=== PATIENT | female | born 1940 | race Caucasian/White ===

== ENCOUNTER → 2017-11-04 07:06 | Outpatient (CLI) | payer MEDICARE, SELFPAY ==
--- NOTE | 2017-11-04 07:10 | CT_ITS ---
STUDY: CT ABDOMEN AND PELVIS WITH CONTRAST REASON FOR EXAM: Female, 77 years old. Several day history of hematuria. History of breast carcinoma with bilateral mastectomies. RADIATION DOSAGE (If Supplied By Facility): CTDIvol = ( 19.55 ) mGy, DLP = ( 1083.84 ) mGycm TECHNIQUE: Transaxial images were obtained from the dome of the diaphragm to the symphysis pubis without oral contrast. 100 ml of Isovue 300 contrast was administered. Sagittal and coronal images were reconstructed. Individualized dose optimization techniques were used for this CT. COMPARISON: Comparison is made with prior study dated June 23, 2015. FINDINGS: Minimal increased linear markings at the lung bases suggests mild bibasilar scarring. This is essentially unchanged. The visualized portions of the heart are within normal limits. Normal liver. There are surgical clips in the gallbladder fossa consistent with a prior cholecystectomy. Borderline splenomegaly. Normal pancreas. Normal bilateral adrenal glands. Stable 1 cm cyst in the lateral midportion of the right kidney. 1 cm cyst in the lateral midportion of the left kidney. Punctate calcification in the lower pole calyx of the left kidney. Normal visualized stomach. Stable 3.8 cm x 4.5 cm diverticulum along the third portion of the duodenum. There are multiple colonic diverticula consistent with diverticulosis. The appendix is visualized and appears normal. There is diffuse atherosclerotic calcification of the abdominal aorta, without a demonstrated aneurysm. Normal inferior vena cava. Normal retroperitoneum. Normal urinary bladder. Normal abdominal wall. There are degenerative changes of the visualized lumbar spine. Minimal anterior listhesis of L5 on S1. CT/Abdomen/Pelvis WITH Contrast IMPRESSION: Sigmoid diverticulosis. Stable small bilateral renal cysts. Stable diverticulum of the third portion of the duodenum. Electronically Signed: Erwin Singh MD at 10:32 EST Tel [phone], Service support ,
[2017-11-04 07:26] LABS: CREATININE FINGERSTICK 1.2 mg/dL (0.55-1.02)
== END ==
PROVIDERS: Family Provider Internal Medicine; PCP Internal Medicine; Visit Provider Internal Medicine
DX: R31.9 Hematuria, unspecified (principal); Z85.3 Personal history of malignant neoplasm of breast; Z90.13 Acquired absence of bilateral breasts and nipples
CPT/HCPCS: 74177; Q9967

== ENCOUNTER → 2017-11-06 08:37 | Outpatient (CLI) | payer MEDICARE, SELFPAY | PROVIDERS: Family Provider Internal Medicine; PCP Internal Medicine; Visit Provider Internal Medicine | DX: M79.604 Pain in right leg (principal) ==

== ENCOUNTER → 2018-01-17 10:57 | Outpatient (CLI) | payer MEDICARE, SELFPAY ==
[2018-01-17 12:39] LABS: Absolute Neutrophil Count 1.3 X10^3/uL (2.0-7.7); Basophil# 0.01 X10^3/uL; Basophil% 0.4 % (0-1); Eosinophil# 0.08 X10^3/uL; Eosinophils% 3.3 % (0-5); Hematocrit 37.6 % (37-47); Hemoglobin 12.3 g/dl (12.0-15.0); Lymphocyte % 36.9 % (19-41); Mean Corp Hgb Conc 32.7 g/gl (32-36); Mean Corpuscular Volume 97.9 fL (81-99); Mean Platelet Vol. 10.3 fl (6.2-12.0); Monocyte# 0.16 X10^3/uL; Monocyte% 6.6 % (0-10); Neutrophil # 1.29 X10^3/uL (2.7-7.7); Neutrophil % 52.8 % (47-70); Platelet Count 89 K/mm3 (150-450); RBC Distribution Width CV 13.9 % (11.6-14.6); Red Blood Count 3.84 M/mm3 (4.2-5.4); White Blood Count 2.4 K/mm3 (4.4-11.0)
[2018-01-17 12:45] LABS: POSITIVE COUNT NO; POSITIVE DIFFERENTIAL NO; POSITIVE MORPHOLOGY NO
[2018-01-17 16:35] LABS: ALB/GLOB Ratio 0.6 RATIO (0.9-2.4); AST(SGOT) 23 U/L (15-37); Alanine Aminotransfer ALT/SGPT 28 U/L (13-56); Albumin, Serum 3.1 g/dL (3.2-5.0); Alkaline Phosphatase 111 U/L (45-117); Anion Gap 13 (5-15); BUN 16 mg/dL (7-18); BUN/Creat Ratio 14.8 RATIO (10-20); CRP, High Sensitivity Cardiac 0.56 mg/L; Calcium,Total 8.2 mg/dL (8.5-10.1); Chloride 105 mmol/L (98-107); Creatinine, Serum 1.08 mg/dL (0.55-1.02); EST Glomerular Filtration Rate 52 mL/min (>60); Est Glom Filt Rate - Afr Amer 63 mL/min (>60); Globulin 5.6 g/dL (2.2-4.2); Glucose 147 mg/dL (74-106); Magnesium 2.2 mg/dL (1.6-2.6); Potassium 3.4 mmol/L (3.5-5.1); Protein, Total 8.7 g/dL (6.4-8.2); Sodium Level 144 mmol/L (136-145); Thyroid Stim Hormone (TSH) 0.96 uIU/mL (0.358-3.74)
== END ==
PROVIDERS: Family Provider Internal Medicine; PCP Internal Medicine; Visit Provider Internal Medicine
DX: E87.6 Hypokalemia (principal); E83.51 Hypocalcemia; I10 Essential (primary) hypertension; R79.82 Elevated C-reactive protein (CRP); E03.9 Hypothyroidism, unspecified
CPT/HCPCS: 36415; 80053; 82330; 83735; 84443; 85025; 86141

== ENCOUNTER → 2018-06-03 17:27 | Outpatient (CLI) | payer MEDICARE, SELFPAY | PROVIDERS: Family Provider Internal Medicine; PCP Internal Medicine; Referring Provider Nurse Practitioner Adult Health; Visit Provider Nurse Practitioner Adult Health | DX: R31.0 Gross hematuria (principal) | CPT/HCPCS: 87086; 87088 ==

== ENCOUNTER → 2018-06-10 16:40 | Outpatient (CLI) | payer MEDICARE, SELFPAY | PROVIDERS: Referring Provider Nurse Practitioner Adult Health; Visit Provider Nurse Practitioner Adult Health | DX: R82.998 Other abnormal findings in urine (principal) | CPT/HCPCS: 87086; 87088 ==

== ENCOUNTER → 2018-07-21 15:25 | Outpatient (CLI) | payer MEDICARE, SELFPAY ==
[2018-05-16 14:06] VITALS: BMI 32.0
[2018-07-21 16:45] LABS: Absolute Neutrophil Count 1.6 X10^3/uL (2.0-7.7); Hematocrit 37.7 % (37-47); Hemoglobin 12.4 g/dl (12.0-15.0); Mean Corp Hgb Conc 32.9 g/gl (32-36); Mean Corpuscular Volume 100.3 fL (81-99); Mean Platelet Vol. 10.6 fl (6.2-12.0); Platelet Count 110 K/mm3 (150-450); RBC Distribution Width CV 13.8 % (11.6-14.6); RBC Distribution Width SD 49.3 fl (35.1-43.9); Red Blood Count 3.76 M/mm3 (4.2-5.4); White Blood Count 2.5 K/mm3 (4.4-11.0)
[2018-07-21 17:05] LABS: Scan Indicated on CBC? Y/N NO
== END ==
PROVIDERS: Referring Provider Internal Medicine Hematology & Oncology; Visit Provider Internal Medicine Hematology & Oncology
DX: C90.00 Multiple myeloma not having achieved remission (principal)
CPT/HCPCS: 85027

== ENCOUNTER → 2018-10-23 10:03 | Outpatient (CLI) | payer MEDICARE, SELFPAY ==
--- NOTE | 2018-10-24 10:04 | PFTCOMP_ITS ---
COMPLETE PULMONARY FUNCTION TEST INTERPRETATION Brief HPI: Patient is an 78 year old female, currently under the care of dyspnea, who presents to [facility] for complete pulmonary function tests secondary to diagnosis of Dr. Pacheco. Respiratory therapist reports good effort and reproducible results. Interpretation: Forced expiration spirometry shows no large airways obstructive ventilatory defect with an FEV1 of 97% predicted. There is no significant bronchodilator response by strict ATS criteria. Spirograms are of good quality and plateau normally. The respiratory flow volume loop shows a normal pattern. Lung volumes by body plethysmography show a normal total lung capacity at 4.42 L, 102% predicted. All other lung volumes are within normal limits. Diffusion capacity by carbon monoxide is at the lower limit of normal at 66% predicted. The airway resistance is elevated. Compared to previous pulmonary function tests from 09/26/2016, there has been a significant reduction in FVC. Impression: These pulmonary function tests are grossly within normal limits. Diffusion capacity is at the lower limit of normal, so early pulmonary vascular disease cannot be excluded.
== END ==
PROVIDERS: Family Provider Internal Medicine; PCP Internal Medicine; Referring Provider Internal Medicine; Visit Provider Internal Medicine
DX: R06.02 Shortness of breath (principal); R09.02 Hypoxemia
CPT/HCPCS: 94060; 94726; 94729

== ENCOUNTER → 2018-11-18 09:25 | Outpatient (CLI) | payer MEDICARE, SELFPAY ==
[2018-05-16 14:06] VITALS: BMI 32.0
== END ==
PROVIDERS: Family Provider Internal Medicine; PCP Internal Medicine; Referring Provider Internal Medicine Hematology & Oncology; Visit Provider Internal Medicine Hematology & Oncology
DX: C90.00 Multiple myeloma not having achieved remission (principal)
CPT/HCPCS: 86850; 86900

== ENCOUNTER → 2018-12-02 08:15 | Outpatient (CLI) | payer MEDICARE, SELFPAY ==
[2018-05-16 14:06] VITALS: BMI 32.0
[2018-12-02 10:22] LABS: Vitamin D,25 Hydroxy 71.2 ng/mL (29.95-100.01)
[2018-12-02 10:29] LABS: ALB/GLOB Ratio 0.8 RATIO (0.9-2.4); AST(SGOT) 19 U/L (15-37); Alanine Aminotransfer ALT/SGPT 27 U/L (13-56); Albumin, Serum 3.3 g/dL (3.2-5.0); Alkaline Phosphatase 110 U/L (45-117); Anion Gap 9 (5-15); BUN 19 mg/dL (7-18); BUN/Creat Ratio 17.3 RATIO (10-20); Calcium,Total 7.9 mg/dL (8.5-10.1); Chloride 107 mmol/L (98-107); Cholesterol 210 mg/dL (200); EST Glomerular Filtration Rate 51 mL/min (>60); Est Glom Filt Rate - Afr Amer 61 mL/min (>60); Globulin 4.3 g/dL (2.2-4.2); Glucose 217 mg/dL (74-106); High Density Lipoprotein 39 mg/dL; Potassium 3.6 mmol/L (3.5-5.1); Protein, Total 7.6 g/dL (6.4-8.2); Sodium Level 141 mmol/L (136-145); Triglycerides 290 mg/dL; Very Low Density Lipoprotein 58 mg/dL (5-40)
== END ==
PROVIDERS: Family Provider Internal Medicine; PCP Internal Medicine; Referring Provider Internal Medicine; Visit Provider Internal Medicine
DX: E03.9 Hypothyroidism, unspecified (principal); E78.00 Pure hypercholesterolemia, unspecified; E55.9 Vitamin D deficiency, unspecified
CPT/HCPCS: 36415; 80053; 80061; 82306; 84443

== ENCOUNTER → 2019-01-22 14:48 | Outpatient (CLI) | payer MEDICARE, SELFPAY ==
[2019-01-09 14:46] VITALS: BMI 32.0
[2019-01-22 15:58] LABS: Absolute Lymphocyte Count 0.48 X10^3/ul (0.83-4.51); Absolute Neutrophil Count 1.9 X10^3/uL (2.0-7.7); Basophil# 0.01 X10^3/uL; Basophil% 0.4 % (0-1); Eosinophil# 0.03 X10^3/uL; Eosinophils% 1.1 % (0-5); Hematocrit 43.4 % (37-47); Lymphocyte # 0.48 X10^3/ul (4.0); Mean Corp Hgb Conc 32.3 g/gl (32-36); Mean Corpuscular Hgb 34.7 pg (27.0-32.0); Mean Corpuscular Volume 107.7 fL (81-99); Mean Platelet Vol. 11.6 fl (6.2-12.0); Monocyte# 0.38 X10^3/uL; Monocyte% 13.4 % (0-10); Neutrophil # 1.93 X10^3/uL (2.7-7.7); Neutrophil % 68.1 % (47-70); Platelet Count 69 K/mm3 (150-450); RBC Distribution Width SD 59.6 fl (35.1-43.9); Red Blood Count 4.03 M/mm3 (4.2-5.4); White Blood Count 2.8 K/mm3 (4.4-11.0)
[2019-01-22 15:59] LABS: Differential Indicated SCAN CRITERIA MET; POSITIVE COUNT NO; POSITIVE DIFFERENTIAL YES; POSITIVE MORPHOLOGY YES
[2019-01-22 16:16] LABS: Hemoglobin A1c 8.5 % (4.2-6.3)
[2019-01-22 16:17] LABS: ALB/GLOB Ratio 0.9 RATIO (0.9-2.4); AST(SGOT) 12 U/L (15-37); Alanine Aminotransfer ALT/SGPT 28 U/L (13-56); Albumin, Serum 3.3 g/dL (3.2-5.0); Alkaline Phosphatase 87 U/L (45-117); Anion Gap 4 (5-15); BUN 15 mg/dL (7-18); BUN/Creat Ratio 14.3 RATIO (10-20); Calcium,Total 8.4 mg/dL (8.5-10.1); Chloride 109 mmol/L (98-107); Cholesterol 145 mg/dL (200); Creatinine, Serum 1.05 mg/dL (0.55-1.02); EST Glomerular Filtration Rate 54 mL/min (>60); Est Glom Filt Rate - Afr Amer 65 mL/min (>60); Globulin 3.6 g/dL (2.2-4.2); Glucose 202 mg/dL (74-106); High Density Lipoprotein 43 mg/dL; Potassium 4.1 mmol/L (3.5-5.1); Protein, Total 6.9 g/dL (6.4-8.2); Sodium Level 143 mmol/L (136-145); T4 Free Direct 1.21 ng/dL (0.76-1.46); Thyroid Stim Hormone (TSH) 1.03 uIU/mL (0.358-3.74); Triglycerides 165 mg/dL; Very Low Density Lipoprotein 33 mg/dL (5-40)
[2019-01-22 16:25] LABS: Vitamin D,25 Hydroxy 44.5 ng/mL (29.95-100.01)
[2019-01-22 16:41] LABS: Differential Comment SCANNED
[2019-01-22 18:28] LABS: Microalbumin,Random Urine 21.8 mg/L (NO RANGE EST.); Microalbumin:Creatinine Ratio 9.3 mg/g CRE (<30 mg/g CRE)
[2019-01-23 14:16] LABS: Pathologist Review Reviewed
== END ==
PROVIDERS: Family Provider Family Medicine; PCP Family Medicine; Referring Provider Family Medicine; Visit Provider Family Medicine
DX: I10 Essential (primary) hypertension (principal); E11.9 Type 2 diabetes mellitus without complications; E55.9 Vitamin D deficiency, unspecified; E03.9 Hypothyroidism, unspecified; E78.5 Hyperlipidemia, unspecified
CPT/HCPCS: 36415; 80053; 80061; 82043; 82306; 82570; 83036; 84439; 84443; 85025

== ENCOUNTER → 2019-01-23 12:51 | Outpatient (CLI) | payer MEDICARE, SELFPAY ==
[2019-01-09 14:46] VITALS: BMI 32.0
--- NOTE | 2019-01-23 12:54 | CDU_ITS ---
Reason For Study: Retinal vein occlusion Rt. Velocities/BP Lt. Velocities/BP Prox CCA 64.3/8.2 cm/sec. Prox CCA 87.5/14.7 cm/sec. Mid CCA 60.6/9.4 cm/sec. Mid CCA 76.9/14.7 cm/sec. Dist CCA 59.5/9.4 cm/sec. Dist CCA 57.7/8.9 cm/sec. Prox ICA 73.1/17.4 cm/sec. Prox ICA 43.1/14.2 cm/sec. Mid ICA 85.6/15.1 cm/sec. Mid ICA 63.7/16.7 cm/sec. Dist ICA 116.7/21.2 cm/sec. Dist ICA 143.8/26 cm/sec. Rt. ICA/CCA = 1.9. Lt. ICA/CCA = 1.9. Prox ECA 78.8/3.8 cm/sec. Prox ECA 87/4.6 cm/sec. Rt. Vert. 71.2/13.7 cm/sec. Lt. Vert. 32.9/7.8 cm/sec. Right Extracranial There is intimal thickening but no significant atherosclerotic plaque noted in the right common carotid artery. There is heterogeneous, irregular atherosclerotic plaque noted in the right internal carotid artery. There is intimal thickening but no significant atherosclerotic plaque noted in the right external carotid artery. Antegrade flow is noted in the right vertebral artery. Left Extracranial There is intimal thickening but no significant atherosclerotic plaque noted in the left common carotid artery. There is heterogeneous, irregular atherosclerotic plaque noted in the left internal carotid artery. There is intimal thickening but no significant atherosclerotic plaque noted in the left external carotid artery. Antegrade flow is noted in the left vertebral artery. Procedure Carotid Duplex 34035. Exam performed in department. Interpretation Summary Mild (<50%) stenosis right extracranial internal carotid. Mild (<50%) stenosis left extracranial internal carotid. Flow within the vertebral arteries is antegrade bilaterally. Ordering Physician: Stone Orantes Referring Physician: Josette Pacheco M.D. Performed By: Sommer Mesa RVT
== END ==
PROVIDERS: Family Provider Internal Medicine; PCP Internal Medicine; Referring Provider Ophthalmology; Visit Provider Ophthalmology
DX: H34.8120 Central retinal vein occlusion, left eye, with macular edema (principal)
CPT/HCPCS: 93880

== ENCOUNTER 2019-01-30 07:15 | Day surgery (SDC) | payer MEDICARE, SELFPAY ==
[2019-01-09 14:46] VITALS: BMI 32.0
--- NOTE | 2019-01-09 15:15 | HP_ITS ---
Intake Vital Signs 01/09/19 Body Mass Index (BMI) 32.0 01/09/19 Height 5 ft 2 in 01/09/19 Weight: 175 lb 2 oz 01/09/19 Body Mass Index (BMI) 32.0 01/09/19 Blood Pressure 153/92 H 01/09/19 Blood Pressure Location Rt brachial 01/09/19 Blood Pressure Position Sitting 01/09/19 Respiratory Rate 20 H 01/09/19 Pulse Rate 95 01/09/19 Pulse Ox 96 Intake Visit Reasons: Port Placement Consult Chief Complaint: port --bone marrow CA Garage [employer] Required: No Is patient in pain?: No Allergies lisinopril Allergy (Verified 01/09/19 14:46) Unknown Medications Aspirin [Aspirin, Baby] 81 mg PO DAILY@0800 10/07/13 [History Confirmed 05/16/18] Cetirizine HCl [Zyrtec] 10 mg PO DAILY 10/07/13 [History Confirmed 05/16/18] Levothyroxine [Synthroid] 100 mcg PO DAILY 10/07/13 [History Confirmed 05/16/18] Multivitamins,Therapeutic [Multivitamin] 1 tab PO DAILY 10/07/13 [History Confirmed 05/16/18] Sertraline HCl [Zoloft] 150 mg PO DAILY 10/07/13 [History Confirmed 05/16/18] Insulin Detemir [Levemir FlexPen] 50 units SC QHS 11/24/16 [History Confirmed 05/16/18] Simvastatin [Zocor] 40 mg PO QHS 11/24/16 [History Confirmed 05/16/18] Valsartan [Diovan] 160 mg PO DAILY 11/24/16 [History Confirmed 05/16/18] Calcium Carbonate/Vitamin D3 [Calcium 500+D Tablet Chew] 1 tab PO DAILY 12/25/16 [History Confirmed 05/16/18] Insulin Lispro [Humalog] 0 unit SQ UD 12/25/16 [History Confirmed 05/16/18] Ketotifen Fumarate [Alaway] 10 ml OP DAILY PRN PRN 12/25/16 [History Confirmed 05/16/18] Is last menstrual period known: No Post menopausal: Yes Patient : No PFSH Medical History Leukopenia (Acute) Hypophosphatemia (Acute) Gastroenteritis (Acute) Acute renal failure (Acute) Metabolic acidosis (Acute) Hypokalemia (Acute) Hypertension (Chronic) Diabetes mellitus type 2 in obese (Chronic) Breast cancer (Chronic) Gastroesophageal reflux disease (Chronic) Hypothyroidism (acquired) (Chronic) Hyperlipidemia (Chronic) Osteoporosis (Chronic) Dehydration (Acute) Obstructive sleep apnea (Chronic) Depression (Chronic) Cataracts, bilateral (Chronic) Chronic idiopathic thrombocytopenia (Chronic) Diastolic dysfunction (Chronic) Surgical History Hx of tonsillectomy (Acute) Hx of cholecystectomy (Acute) History of thyroidectomy (Chronic) Family History Mother CVA (cerebral vascular accident) Social History Smoking Status: Never smoker second hand exposure: No alcohol intake: never substance use type: does not use caffeine: Yes what type of physical activity do you participate in: none frequency: does not exercise seatbelt use: always HPI HPI HPI: MAGDI IBRAHIM, is a 78 F who presents to the office today for HPI HPI Surgical H&P: Yes HPI: MAGDI IBRAHIM, is a 78 F who presents to the office today for surgical consultation regarding placement of a port to facilitate IV chemotherapy management. The patient is referred by Dr. Daniel Toussaint and a written copy of my surgical consult recommendations will be returned to him. Magdi is a patient who I know very well. I have assisted her over many years. She has had a history of left breast cancer and left upper extremity melanoma and diabetes mellitus and sleep apnea and hypertension and asthma and osteoporosis as well as a meningioma thrombocytopenia hypercholesterolemia GERD and newly diagnosed positive bone lytic lesions for multiple myeloma. She has been receiving IV chemotherapy through peripheral veins which are becoming exhausted. Risk request is made to help facilitate IV management. ROS General General: Yes weight change, fatigue and breast cancer; no appetite, colon cancer or weakness Additional Details: Bone marrow CA HEENT HEENT: Yes eye surgery; no difficulty swallowing, eye injury, swollen glands or hoarseness Endo Endocrine: Yes thyroid disease and diabetes mellitus; no thyroid cancer, Hair loss, heat intolerance or cold intolerance Cardio Cardiovascular: Yes high blood pressure; no murmur, pacemaker, heart disease, atrial fibrillation, heart attack, heart stent, palpitations, shortness of breat with exertion or chest pain Psych Psychiatric: Yes depression; no anxiety or hearing voices Resp Respiratory: No shortness of breath, Yes sleep apnea, No cough, No COPD, No asthma, No emphysema, No wheezing Gastro Gastrointestinal: No abdominal pain, No nausea or vomiting, No diarrhea, No constipation, No blood in stool, Yes acid reflux, No hemorrhoids, No ulcers, No gallbladder problem, No black,tarry stools Neuro Neurologic: No weakness Exam Const General: cooperative Nutritional Appearance: overweight Orientation: alert, awake [facility] Head: normal to inspection Neck Other: Carotids 2+. No bruits. Neck is supple Resp Effort & Inspection: normal respiratory effort Auscultation: clear to auscultation bilaterally Cardio Rate: regular rate Rhythm: regular rhythm Heart Sounds: no murmurs GI Palpation: soft, no hepatosplenomegaly Auscultation: normal bowel sounds Neuro Cognition: normal cognition Extrem General: no calf tenderness bilaterally Psych Affect: normal affect Assessment & Plan Problems 1. Multiple myeloma, remission status unspecified C90.00 Plan The patient has had left breast cancer left upper extremity melanoma she has had 2 attempts at left axillary dissection. I would propose therefore right internal jugular port placement. I discussed with her technique, benefit, risks and alternatives. The patient states that she has had some retinal hemorrhage on the left and that a carotid duplex scan is pending. She would like to delay attention until the results of that exam. We offered her a operative date 4 days from now for placement of the port but she has declined that date. She states she would feel more comfortable scheduling a future date. She admittedly is frustrated that she is not permitted to drive herself in and out for the surgical procedure. She does not like composing upon her children. She has had an opportunity to ask and have questions answered. We will schedule and proceed at her discretion. I very much appreciate the ongoing opportunity of assisting with her surgical care. CC: Dr. Daniel Toussaint and Dr. Josette Concepcion M.D., F.A.C.S. Coding Level of Care Code Detailed, Low Diagnoses Multiple myeloma, remission status unspecified C90.00 ??Multiple myeloma remission status: unspecified 01/09/19 4075 <Electronically signed by Daniele Concepcion MD> Date Daniele Concepcion MD Patient re evaluated and no gross changes identified. Lucinda
[2019-01-30] VITALS (9 sets, daily range): BP systolic 101–138; BP diastolic 63–86; PULSE 83–96; RESP 16–20; TEMP 36–36.9; O2SAT 91–95; BMI 32.8
--- NOTE | 2019-01-30 08:37 | DCINST_ITS ---
Discharge Diet: No Restrictions - Pain medication may cause nausea. You should typically eat light foods as you take your pain medication. Discharge Activity: Return to Normal Activity, May Shower - Leave the bandage on for 2-3 days. When you remove the bandage, leave the steri-strips intact until they fall off. Additional Dressing/Incision Instructions:: Leave the bandage on for 2-3 days. When you remove the bandage, leave the steri-strips intact until they fall off. Allergies/Adverse Reactions: Allergies lisinopril Allergy (Verified 01/23/19 11:20) Unknown Medications to take at Discharge Aspirin [Aspirin, Baby] 81 mg PO DAILY@0800 10/07/13 Cetirizine HCl [Zyrtec] 10 mg PO DAILY 10/07/13 Levothyroxine [Synthroid] 100 mcg PO DAILY 10/07/13 Multivitamins,Therapeutic [Multivitamin] 1 tab PO DAILY 10/07/13 Sertraline HCl [Zoloft] 50 mg PO DAILY 10/07/13 Insulin Detemir [Levemir FlexPen] 50 units SC QHS 11/24/16 Simvastatin [Zocor] 20 mg PO QHS 11/24/16 Valsartan [Diovan] 80 mg PO DAILY 11/24/16 Calcium Carbonate/Vitamin D3 [Calcium 500+D Tablet Chew] 1 tab PO DAILY 12/25/16 Insulin Lispro [Humalog] 12 unit SQ TID 12/25/16 Acyclovir 200 mg PO BID 01/23/19 Mineral Oil, Light/Mineral Oil [Soothe Xp Eye Drops] 1 drop OP PRN PRN 01/23/19 Primary Care Physician: Josette Pacheco MD [Primary Care Provider] - Test Results: Test results from this visit will be discussed in further detail at your follow- up appointment, if applicable. Please Follow Up With: Daniele Concepcion MD - [phone] When: Please call if you have any difficulties
[2019-01-30] MEDS: Cefazolin 2 GM in 0.9% Normal Saline 100 ML IV (08:38)
[2019-01-30] MEDS: Bupivacaine Mpf 0.5% 30 ML VIAL (09:14)
--- NOTE | 2019-01-30 09:18 | RAD_ITS ---
STUDY: X-RAY CHEST REASON FOR EXAM: Female, 78 years old. Port placement. TECHNIQUE: Single AP portable view of the chest. COMPARISON: Comparison is made with prior examination dated March 17, 2015. FINDINGS: A right-sided neela catheter has been placed. The tip is at the junction of superior vena cava and right atrium. EKG electrodes are seen. Surgical clips are one seen in the left axillary region and overlying the left hemithorax. Since prior study, there has been progressive infiltrate and/or atelectasis of the left lung base. There is no demonstrated pleural abnormality. Normal size heart. Normal mediastinum and gutierrez. Normal visualized pulmonary arteries. Normal visualized aortic arch and descending thoracic aorta. Normal visualized thoracic spine. There is degenerative osteoarthritis of the bilateral shoulders. Deformity of the proximal right humerus most likely secondary to prior healed fracture. There is no demonstrated abnormality of the visualized soft tissue structures of the upper abdomen. RAD/CXR for Line Placement IMPRESSION: The tip of the right port catheter is at the junction of the superior vena cava and right atrium. Progressive infiltrate and/or atelectasis at the left lung base. Electronically Signed: Erwin Singh, at 10:02 EDT , Service support ,
--- NOTE | 2019-01-30 09:23 | OP.PCM_ITS ---
Problem List (1) Multiple myeloma Status: Acute Qualifiers: Report of Operation Date of Procedure: 01/30/19 Pre-Operative Diagnosis: Multiple myeloma Post-Operative Diagnosis: Same Surgery/Procedure Performed:: Right internal jugular 6 Amharic power port placement reference. #[id number]. Lot number [id number] expiry date 06/01/2020 Description of Surgical Findings:: Timeout and informed consent was obtained. 78-year-old female was taken the operating placement table underwent monitored anesthesia care. Ancef 2 g were given intravenously preoperatively. The right neck and chest were sterilely prepped draped. Under ultrasound guidance 1% lidocaine mixed 50-50 with 0.5% Marcaine was used as a local anesthetic. A total of 25 cc was used. Local was instilled micropuncture needle was inserted in the right internal jugular vein Salinger wire technique. Local was instilled down upon the chest wall. Mid clavicular line second intercostal space transverse incision was created. A subcutaneous pocket was created with electrocautery. The tubing was tunneled from the neck to the chest site. Micropuncture sheath was placed an 035 J-wire was inserted. Fluoroscopy demonstrated good positioning. Sheath dilator was placed over the wire. The wire and dilator were removed. The catheter was advanced through the sheath. The sheath was split leaving the catheter at the SVC atrial junction with fluoroscopic assistance. The catheter was amputated to length connected the port and secured with a port attachment device. The port was placed in the pocket and secured there with interrupted 2-0 silk. Skin edges were approximated interrupted 3-0 Vicryl subdermal stitches. The neck was closed with interrupted 5-0 Vicryl. Steri-Strips Telfa and OpSite dressings applied. The port was accessed and aspirated easily was flushed with saline and then 2 cc of heparinized saline. Sponge and instrument and needle counts were reported to the surgeon to be correct. Blood loss was minimal. She tolerated the procedure well and was taken to the recovery area in satisfactory condition without apparent complication. Stat portable chest x-ray is pending. Specimen none. Drains none. Blood loss minimal. Daniele Concepcion M.D., F.A.C.S. Type of Anesthesia:: Local MAC Anesthesiologist: Alirio Siegel
[2019-01-30 09:36] LABS: Bedside Glucose 187 mg/dL (70-110)
== END 2019-01-30 11:21 | disposition home or self-care (01) ==
LOC: SDC 07:20 → AC 07:20
PROVIDERS: Family Provider Internal Medicine; PCP Internal Medicine; Referring Provider Surgery; Visit Provider Surgery
PROC: (CPT 36561; principal; 2019-01-30 08:30)
DX: C90.00 Multiple myeloma not having achieved remission (principal); E11.9 Type 2 diabetes mellitus without complications; I10 Essential (primary) hypertension; E03.9 Hypothyroidism, unspecified; E78.5 Hyperlipidemia, unspecified; M81.0 Age-related osteoporosis without current pathological fracture; D69.3 Immune thrombocytopenic purpura; E07.9 Disorder of thyroid, unspecified; E78.00 Pure hypercholesterolemia, unspecified; D69.6 Thrombocytopenia, unspecified; G47.33 Obstructive sleep apnea (adult) (pediatric); J45.909 Unspecified asthma, uncomplicated; K21.9 Gastro-esophageal reflux disease without esophagitis; F32.9 Major depressive disorder, single episode, unspecified; F41.9 Anxiety disorder, unspecified; E66.9 Obesity, unspecified; Z68.32 Body mass index [BMI] 32.0-32.9, adult; Z79.82 Long term (current) use of aspirin; Z79.4 Long term (current) use of insulin; Z79.899 Other long term (current) drug therapy; Z88.8 Allergy status to other drugs, medicaments and biological substances; Z78.0 Asymptomatic menopausal state; Z85.3 Personal history of malignant neoplasm of breast; Z85.820 Personal history of malignant melanoma of skin
CPT/HCPCS: 36561; 76937; 71045; 77001; 82962; J7120

== ENCOUNTER → 2019-02-17 | Outpatient (CLI) | payer MEDICARE, SELFPAY ==
[2019-01-30 07:37] VITALS: BMI 32.8
[2019-02-17 15:37] LABS: Vitamin B12 692 pg/mL (211-911); Vitamin D,25 Hydroxy 43.8 ng/mL (29.95-100.01)
[2019-02-17 15:40] LABS: Protein, Urine (Random) 13.5 mg/dL (<11.9); Protein:Creat Ratio 41 mg/g CRE (0-200)
[2019-02-17 16:02] LABS: Anion Gap 11 (5-15); BUN 22 mg/dL (7-18); BUN/Creat Ratio 19.5 RATIO (10-20); Calcium,Total 8.5 mg/dL (8.5-10.1); Chloride 108 mmol/L (98-107); Creatinine, Serum 1.13 mg/dL (0.55-1.02); EST Glomerular Filtration Rate 49 mL/min (>60); Est Glom Filt Rate - Afr Amer 60 mL/min (>60); Glucose 162 mg/dL (74-106); Potassium 3.6 mmol/L (3.5-5.1); Sodium Level 144 mmol/L (136-145)
== END | disposition home or self-care (01) ==
LOC: MFPLAB 12:05
PROVIDERS: Family Provider Family Medicine; PCP Family Medicine; Referring Provider Family Medicine; Visit Provider Family Medicine
DX: D75.89 Other specified diseases of blood and blood-forming organs (principal); R94.4 Abnormal results of kidney function studies
CPT/HCPCS: 36415; 80048; 82306; 82570; 82607; 82746; 84156

== ENCOUNTER → 2019-05-19 14:58 | Outpatient (CLI) | payer MEDICARE, SELFPAY ==
[2019-01-30 07:37] VITALS: BMI 32.8
[2019-05-19 16:10] LABS: Hemoglobin A1c 8.4 % (4.2-6.3)
[2019-05-19 16:12] LABS: Absolute Lymphocyte Count 0.94 X10^3/uL (0.83-4.51); Absolute Neutrophil Count 4.1 X10^3/uL (2.0-7.7); Basophil# 0.03 X10^3/uL; Basophil% 0.5 % (0-1); Eosinophil# 0.11 X10^3/uL; Eosinophils% 1.9 % (0-5); Hematocrit 44.8 % (37-47); Hemoglobin 14.9 g/dL (12.0-15.0); Lymphocyte # 0.94 X10^3/ul (4.0); Lymphocyte % 16.4 % (19-41); Mean Corp Hgb Conc 33.3 g/dL (32-36); Mean Corpuscular Hgb 32.3 pg (27.0-32.0); Mean Corpuscular Volume 97.2 fL (81-99); Mean Platelet Vol. 10.5 fl (6.2-12.0); Monocyte# 0.59 X10^3/uL; Monocyte% 10.3 % (0-10); NRBC Flagged by Analyzer 0 % (0-5); Neutrophil # 4.05 X10^3/uL (2.7-7.7); Neutrophil % 70.7 % (47-70); Platelet Count 110 K/mm3 (150-450); Red Blood Count 4.61 M/mm3 (4.2-5.4); White Blood Count 5.7 K/mm3 (4.4-11.0)
[2019-05-19 16:22] LABS: ALB/GLOB Ratio 0.7 RATIO (0.9-2.4); AST(SGOT) 16 U/L (15-37); Alanine Aminotransfer ALT/SGPT 20 U/L (13-56); Albumin, Serum 3.3 g/dL (3.2-5.0); Alkaline Phosphatase 64 U/L (45-117); Anion Gap 7 (5-15); BUN 17 mg/dL (7-18); BUN/Creat Ratio 15.7 RATIO (10-20); Calcium,Total 8.8 mg/dL (8.5-10.1); Chloride 108 mmol/L (98-107); Cholesterol 135 mg/dL (200); Creatinine, Serum 1.08 mg/dL (0.55-1.02); EST Glomerular Filtration Rate 52 mL/min (>60); Est Glom Filt Rate - Afr Amer 63 mL/min (>60); Globulin 4.5 g/dL (2.2-4.2); Glucose 79 mg/dL (74-106); High Density Lipoprotein 44 mg/dL; Potassium 3.7 mmol/L (3.5-5.1); Protein, Total 7.8 g/dL (6.4-8.2); Sodium Level 144 mmol/L (136-145); Thyroid Stim Hormone (TSH) 0.39 uIU/mL (0.358-3.74); Triglycerides 153 mg/dL; Very Low Density Lipoprotein 31 mg/dL (5-40)
[2019-05-19 17:03] LABS: Vitamin D,25 Hydroxy 47.6 ng/mL (29.95-100.01)
== END ==
LOC: LAB.FUTURE 15:12 → MEDOUTP 15:14
PROVIDERS: Family Provider Family Medicine; PCP Family Medicine; Referring Provider Family Medicine; Visit Provider Family Medicine
DX: E11.9 Type 2 diabetes mellitus without complications (principal); I10 Essential (primary) hypertension; E03.9 Hypothyroidism, unspecified; E78.5 Hyperlipidemia, unspecified; E55.9 Vitamin D deficiency, unspecified; R94.4 Abnormal results of kidney function studies
CPT/HCPCS: 36591; 80053; 80061; 82306; 83036; 84443; 85025; A4216

== ENCOUNTER → 2019-09-14 13:14 | Outpatient (CLI) | payer MEDICARE, SELFPAY ==
[2019-09-03 13:20] VITALS: BMI 32.8
[2019-09-14 14:02] LABS: Bacteria 0 SEEN /hpf (None Seen); Red Blood Cells-Urine 0 SEEN /hpf (0-5); Squamous Epithelial Cells - UA 0 SEEN /hpf (5-10)
[2019-09-14 14:10] LABS: Absolute Lymphocyte Count 0.74 X10^3/uL (0.83-4.51); Absolute Neutrophil Count 1.7 X10^3/uL (2.0-7.7); Basophil# 0.02 X10^3/uL; Basophil% 0.7 % (0-1); Eosinophil# 0.05 X10^3/uL; Eosinophils% 1.7 % (0-5); Hematocrit 40.2 % (37-47); Lymphocyte # 0.74 X10^3/ul (4.0); Lymphocyte % 24.8 % (19-41); Mean Corp Hgb Conc 34.8 g/dL (32-36); Mean Corpuscular Hgb 33.3 pg (27.0-32.0); Mean Corpuscular Volume 95.7 fL (81-99); Mean Platelet Vol. 11.7 fl (6.2-12.0); Monocyte# 0.42 X10^3/uL; Monocyte% 14.1 % (0-10); NRBC Flagged by Analyzer 0 % (0-5); Neutrophil # 1.74 X10^3/uL (2.7-7.7); Neutrophil % 58.4 % (47-70); POSITIVE COUNT YES; Platelet Count 79 K/mm3 (150-450); RBC Distribution Width CV 12.2 % (11.6-14.6); RBC Distribution Width SD 42.1 fl (35.1-43.9)
[2019-09-14 14:11] LABS: Differential Indicated SCAN CRITERIA MET
[2019-09-14 14:15] LABS: Color, Urine Yellow (Yellow); Glucose, Dipstick Normal (Normal); Ketone-Dipstick 5 mg/dl (Negative); Leukocyte Esterase-Dipstick 100 /ul (Negative); Nitrite-Dipstick Negative (Negative); Occult Blood-Urine Negative /ul (Negative); Protein-Dipstick 15 mg/dl (Negative); Specific Gravity, Urine 1.025 (1.002-1.030); Urine Clarity Sl. Cloudy (Clear); Urine Urobilinogen 4 mg/dl (Normal)
[2019-09-14 14:27] LABS: Vitamin B12 590 pg/mL (211-911)
[2019-09-14 14:31] LABS: Urine Bilirubin Dipstick 1 mg/dL (Negative)
[2019-09-14 14:38] LABS: Platelet Estimate MOD DEC (ADEQ)
[2019-09-14 14:38] LABS: Mucous, Urine RARE /hpf (<or=2+); White Blood Cells 0-5 SEEN /hpf (0-5)
[2019-09-14 14:47] LABS: Microalbumin:Creatinine Ratio 14.3 mg/g CRE (<30 mg/g CRE); Protein, Urine (Random) 29.4 mg/dL (<11.9); Protein:Creat Ratio 68 mg/g CRE (0-200)
[2019-09-14 15:01] LABS: Hemoglobin A1c 8.8 % (4.2-6.3)
[2019-09-14 15:38] LABS: ALB/GLOB Ratio 0.7 RATIO (0.9-2.4); AST(SGOT) 20 U/L (15-37); Alanine Aminotransfer ALT/SGPT 23 U/L (13-56); Albumin, Serum 3.1 g/dL (3.2-5.0); Alkaline Phosphatase 65 U/L (45-117); Anion Gap 6 (5-15); BUN 16 mg/dL (7-18); BUN/Creat Ratio 14.7 RATIO (10-20); Calcium,Total 8.2 mg/dL (8.5-10.1); Chloride 110 mmol/L (98-107); Cholesterol 163 mg/dL (200); Creatinine, Serum 1.09 mg/dL (0.55-1.02); EST Glomerular Filtration Rate 51 mL/min (>60); Est Glom Filt Rate - Afr Amer 62 mL/min (>60); Globulin 4.2 g/dL (2.2-4.2); Glucose 130 mg/dL (74-106); High Density Lipoprotein 27 mg/dL; Potassium 3.7 mmol/L (3.5-5.1); Protein, Total 7.3 g/dL (6.4-8.2); Sodium Level 143 mmol/L (136-145); T4 Free Direct 1.23 ng/dL (0.76-1.46); Thyroid Stim Hormone (TSH) 0.21 uIU/mL (0.358-3.74); Triglycerides 251 mg/dL; Very Low Density Lipoprotein 50 mg/dL (5-40)
== END ==
PROVIDERS: Family Provider Family Medicine; PCP Family Medicine; Referring Provider Family Medicine; Visit Provider Family Medicine
DX: E78.5 Hyperlipidemia, unspecified (principal); E03.9 Hypothyroidism, unspecified; E55.9 Vitamin D deficiency, unspecified; I12.9 Hypertensive chronic kidney disease with stage 1 through stage 4 chronic kidney disease, or unspecified chronic kidney disease; E11.22 Type 2 diabetes mellitus with diabetic chronic kidney disease; N18.3 Chronic kidney disease, stage 3 (moderate); D75.89 Other specified diseases of blood and blood-forming organs
CPT/HCPCS: 36591; 80053; 80061; 81001; 82043; 82306; 82570; 82607; 82746; 83036; 84156; 84439; 84443; 85025; A4216

== ENCOUNTER → 2019-09-16 14:41 | Outpatient (CLI) | payer MEDICARE, SELFPAY ==
--- NOTE | 2019-09-16 13:00 | LES_PTH ---
PATIENT: MAGDI IBRAHIM LOC: [facility] U#:[id number] AGE/SX: 85/F ROOM: RE09/16/[address]: Dr. Daniele Concepcion MD : 1940 BED: DIS: SPEC #: [id number] RECD: 09/16/19 14:29 STATUS: ROSAS GILA #: [id number] STEPHANIE: 09/16/19 13:[address]: Daniele Concepcion DEPT: SURGICAL PATHOLOGY RECD BY: Eric Pedersen ENTERED: 09/17/19 10:29 SP TYPE: Lesion OTHR DR: Dr. Ed Abbott MD Tissues: Skin of face, NOS Procedures: Surgery Specimen Level IV HEADER OPERATION: Excision left cheek lesion PRE-OP DIAGNOSIS: Uncertain neoplasm face TISSUE SUBMITTED: Left cheek tissue MICROSCOPIC DIAGNOSIS Left cheek tissue, biopsy: Actinic change. Focal seborrheic keratosis. Extensive solar elastosis. No evidence of carcinoma. AM:paris 09/18/19 COMMENT Case has been reviewed in consultation with Dr. Rincon who concurs with the above diagnosis. IDC:SJ MICROSCOPIC DESCRIPTION Slides are reviewed. GROSS DESCRIPTION Received in fixative is one container labeled with the patient's name and designated left cheek. The specimen consists of a piece of leija-white skin ellipse measuring 1.7 x 1 cm and 0.2 cm in thickness. A suture is noted at one tip of the specimen. One half of the specimen towards the suture is inked black and another half is inked blue. The specimen is inked, serially sectioned and submitted entirely in one cassette. / ADELAIDE:paris 09/17/19 TC:5 CPT: 98743
[2019-09-16 13:29] VITALS: BMI 32.8
== END ==
PROVIDERS: Family Provider Family Medicine; PCP Family Medicine; Referring Provider Surgery; Visit Provider Surgery
DX: D48.7 Neoplasm of uncertain behavior of other specified sites (principal)
CPT/HCPCS: 88305

== ENCOUNTER → 2019-09-30 | Outpatient (CLI) | payer MEDICARE, SELFPAY ==
--- NOTE | 2019-09-30 13:00 | LES_PTH ---
PATIENT: MAGDI IBRAHIM LOC: [facility] U#:[id number] AGE/SX: 79/F ROOM: RE09/30/[address]: Dr. Daniele Concepcion MD : 1940 BED: DIS: 09/30/2019 SPEC #: [id number] RECD: 10/01/19 07:20 STATUS: ROSAS GILA #: [id number] STEPHANIE: 09/30/19 13:[address]: Daniele Concepcion DEPT: SURGICAL PATHOLOGY RECD BY: Eric Pedersen Tissues: Skin of forehead Procedures: Surgery Specimen Level IV HEADER OPERATION: Excision of forehead skin lesion PRE-OP DIAGNOSIS: Skin lesion of face L98.9 TISSUE SUBMITTED: Forehead tissue MICROSCOPIC DIAGNOSIS Skin lesion of forehead, biopsy: Basal cell carcinoma, superficial nodule, multifocal, completely excised. Solar elastosis. See comment. AM:paris 10/02/19 COMMENT The lesion measures 3 cm in greatest dimension and appears to have been completely excised in the planes examined. MICROSCOPIC DESCRIPTION Slides are reviewed. GROSS DESCRIPTION Received in fixative is one container labeled with the patient's name and designated forehead tissue. The specimen consists of a leija-white skin ellipse measuring 1.5 x 0.5 x 0.3 cm. The specimen is inked, serially sectioned and submitted entirely in one cassette. / SJ:rg 10/01/19 TC:0 CPT: 84063
[2019-09-30 13:06] VITALS: BMI 32.8
== END | disposition home or self-care (01) ==
LOC: LABSPEC 10-01 08:22
PROVIDERS: Visit Provider Surgery
DX: C44.319 Basal cell carcinoma of skin of other parts of face (principal)
CPT/HCPCS: 88305

== ENCOUNTER → 2019-09-30 | Outpatient (CLI) | payer MEDICARE, SELFPAY ==
[2019-09-30 13:06] VITALS: BMI 32.8
== END | disposition home or self-care (01) ==
LOC: LABSPEC 10-01 09:27
PROVIDERS: Referring Provider Surgery; Visit Provider Surgery
DX: L98.9 Disorder of the skin and subcutaneous tissue, unspecified (principal)

== ENCOUNTER → 2019-12-16 09:46 | Outpatient (CLI) | payer MEDICARE, SELFPAY ==
[2019-09-30 13:06] VITALS: BMI 32.8
[2019-12-16 10:13] LABS: Absolute Lymphocyte Count 1.34 X10^3/uL (0.83-4.51); Basophil# 0.05 X10^3/uL; Eosinophil# 0.16 X10^3/uL; Eosinophils% 3.1 % (0-5); Hematocrit 44.9 % (37-47); Hemoglobin 15.1 g/dL (12.0-15.0); Lymphocyte # 1.34 X10^3/ul (4.0); Lymphocyte % 26.4 % (19-41); Mean Corp Hgb Conc 33.6 g/dL (32-36); Mean Corpuscular Volume 95.1 fL (81-99); Mean Platelet Vol. 10.2 fl (6.2-12.0); Monocyte# 0.52 X10^3/uL; Monocyte% 10.2 % (0-10); NRBC Flagged by Analyzer 0 % (0-5); Neutrophil # 2.99 X10^3/uL (2.7-7.7); Neutrophil % 58.9 % (47-70); POSITIVE COUNT YES; Platelet Count 96 K/mm3 (150-450); RBC Distribution Width CV 12.3 % (11.6-14.6); RBC Distribution Width SD 42.8 fl (35.1-43.9); Red Blood Count 4.72 M/mm3 (4.2-5.4); White Blood Count 5.1 K/mm3 (4.4-11.0)
[2019-12-16 10:14] LABS: Differential Indicated SCAN CRITERIA MET
[2019-12-16 10:27] LABS: PTHIN 121.1 pg/mL (18.4-80.1)
[2019-12-16 10:29] LABS: Hemoglobin A1c 7.9 % (4.2-6.3)
[2019-12-16 10:30] LABS: Vitamin D,25 Hydroxy 45.1 ng/mL
[2019-12-16 10:34] LABS: AST(SGOT) 16 U/L (15-37); Alanine Aminotransfer ALT/SGPT 21 U/L (13-56); Albumin, Serum 3.4 g/dL (3.2-5.0); Alkaline Phosphatase 71 U/L (45-117); Anion Gap 6 (5-15); BUN 24 mg/dL (7-18); BUN/Creat Ratio 20.3 RATIO (10-20); Calcium,Total 8.1 mg/dL (8.5-10.1); Chloride 108 mmol/L (98-107); Cholesterol 199 mg/dL (200); Creatinine, Serum 1.18 mg/dL (0.55-1.02); EST Glomerular Filtration Rate 47 mL/min (>60); Est Glom Filt Rate - Afr Amer 56 mL/min (>60); Globulin 3.4 g/dL (2.2-4.2); Glucose 122 mg/dL (74-106); High Density Lipoprotein 45 mg/dL; Phosphorus 4.4 mg/dL (2.5-4.9); Potassium 3.5 mmol/L (3.5-5.1); Protein, Total 6.8 g/dL (6.4-8.2); Sodium Level 143 mmol/L (136-145); T4 Free Direct 1.28 ng/dL (0.76-1.46); Thyroid Stim Hormone (TSH) 0.99 uIU/mL (0.358-3.74); Triglycerides 172 mg/dL; Very Low Density Lipoprotein 34 mg/dL (5-40)
[2019-12-16 10:43] LABS: Platelet Estimate MOD DEC (ADEQ)
== END ==
PROVIDERS: Referring Provider Family Medicine; Visit Provider Family Medicine
DX: I12.9 Hypertensive chronic kidney disease with stage 1 through stage 4 chronic kidney disease, or unspecified chronic kidney disease (principal); N18.3 Chronic kidney disease, stage 3 (moderate); E11.22 Type 2 diabetes mellitus with diabetic chronic kidney disease; E78.5 Hyperlipidemia, unspecified; E03.9 Hypothyroidism, unspecified; E55.9 Vitamin D deficiency, unspecified
CPT/HCPCS: 36415; 36591; 80053; 80061; 82306; 83036; 83970; 84100; 84439; 84443; 85025; A4216

== ENCOUNTER → 2020-03-01 09:30 | Outpatient (CLI) | payer MEDICARE, SELFPAY ==
[2019-09-30 13:06] VITALS: BMI 32.8
--- NOTE | 2020-03-01 09:33 | RAD_ITS ---
STUDY: X-RAY - BILATERAL RIBS WITH CHEST REASON FOR EXAM: Female, 79 years old. recent fall, left anterior rib pain TECHNIQUE - RIBS: 4 view(s) of the ribs. TECHNIQUE - CHEST: Single PA view of the chest. COMPARISON: 09/17/2017 FINDINGS - RIBS : Normal visualized ribs without a demonstrated fracture. FINDINGS - CHEST: Interval placement of right internal jugular chest port with tip of the catheter overlying spur vena cava. Multiple surgical clips in the lateral left hemithorax. The lungs are clear and expanded. There is no demonstrated pleural abnormality. Normal size heart. Normal mediastinum and gutierrez. Normal visualized pulmonary arteries. Normal visualized aortic arch and descending thoracic aorta. Normal visualized thoracic spine. Healed fracture left clavicle. There is no demonstrated abnormality of the visualized soft tissue structures of the upper abdomen. RAD/Ribs Blayne Min 4V w/PA Chest IMPRESSION: RIBS: Normal x-ray examination of the bilateral ribs. CHEST: No active pulmonary disease. Electronically Signed: Gianni Ferrari MD at 9:56 EDT Tel , Service support ,
== END ==
PROVIDERS: Referring Provider Family Medicine; Visit Provider Family Medicine
DX: R07.81 Pleurodynia (principal)
CPT/HCPCS: 71111

== ENCOUNTER → 2020-03-15 17:10 | Outpatient (CLI) | payer MEDICARE, SELFPAY ==
[2019-09-30 13:06] VITALS: BMI 32.8
--- NOTE | 2020-03-15 17:13 | RAD_ITS ---
STUDY: X-RAY CHEST REASON FOR EXAM: Female, 79 years old. patient had a fall a couple weeks ago, has continued left sided rib/chest pain from it TECHNIQUE: PA and lateral views of the chest. COMPARISON: March 01, 2020. FINDINGS: Port on the right extends to the superior vena cava. There is postoperative change in the left chest and axillary region. There are moderate interstitial increased opacities of the lungs. There is no demonstrated pleural abnormality. Normal size heart. Normal mediastinum and gutierrez. Normal visualized pulmonary arteries. There is atherosclerotic calcification of the aortic arch with tortuosity. There are diffuse degenerative changes of the visualized thoracic spine. There are diffuse degenerative changes of the visualized thoracic spine. There are stable healed right humerus and left clavicle fractures. There are multiple left rib fractures of uncertain age. There is no demonstrated abnormality of the visualized soft tissue structures of the upper abdomen. RAD/Chest PA and Lateral IMPRESSION: Multiple healed fractures. Rib fractures of uncertain age. Interstitial edema or infiltrates of the lungs. Electronically Signed: Umer Carney MD at 17:08 EDT , Service support ,
== END ==
PROVIDERS: Referring Provider Registered Nurse; Visit Provider Registered Nurse
DX: R07.81 Pleurodynia (principal)
CPT/HCPCS: 71046

== ENCOUNTER → 2020-04-18 | Outpatient (CLI) | payer MEDICARE, SELFPAY ==
[2019-09-30 13:06] VITALS: BMI 32.8
[2020-04-18 11:28] LABS: ALB/GLOB Ratio 0.8 RATIO (0.9-2.4); AST(SGOT) 14 U/L (15-37); Alanine Aminotransfer ALT/SGPT 22 U/L (13-56); Albumin, Serum 3.3 g/dL (3.2-5.0); Alkaline Phosphatase 77 U/L (45-117); Anion Gap 4 (5-15); BUN 16 mg/dL (7-18); BUN/Creat Ratio 13.6 RATIO (10-20); Calcium,Total 8.3 mg/dL (8.5-10.1); Chloride 108 mmol/L (98-107); Cholesterol 199 mg/dL (200); Creatinine, Serum 1.18 mg/dL (0.55-1.02); EST Glomerular Filtration Rate 47 mL/min (>60); Est Glom Filt Rate - Afr Amer 56 mL/min (>60); Globulin 4.1 g/dL (2.2-4.2); Glucose 184 mg/dL (74-106); Hemoglobin A1c 7.8 % (3.8-5.6); High Density Lipoprotein 38 mg/dL; Potassium 3.7 mmol/L (3.5-5.1); Protein, Total 7.4 g/dL (6.4-8.2); Sodium Level 142 mmol/L (136-145); Triglycerides 200 mg/dL; Very Low Density Lipoprotein 40 mg/dL (5-40)
== END | disposition home or self-care (01) ==
LOC: PAVLAB 10:51 → MEDOUTP 10:52
PROVIDERS: Referring Provider Family Medicine; Visit Provider Family Medicine
DX: I10 Essential (primary) hypertension (principal); E11.9 Type 2 diabetes mellitus without complications
CPT/HCPCS: 36591; 80053; 80061; 83036; A4216

== ENCOUNTER → 2020-07-20 14:07 | Outpatient (CLI) | payer MEDICARE, SELFPAY ==
[2019-09-30 13:06] VITALS: BMI 32.8
[2020-07-20 15:09] LABS: Thyroid Stim Hormone (TSH) 0.65 uIU/mL (0.358-3.74)
[2020-07-20 22:42] LABS: Xtra Tube EP Lab EXTRA TUBE
== END ==
PROVIDERS: Referring Provider Family Medicine; Visit Provider Family Medicine
DX: E03.9 Hypothyroidism, unspecified (principal)
CPT/HCPCS: 36415; 36591; 84443; A4216

== ENCOUNTER → 2020-12-20 14:28 | Outpatient (CLI) | payer MEDICARE, SELFPAY ==
[2019-09-30 13:06] VITALS: BMI 32.8
[2020-12-20 19:11] LABS: Thyroid Stim Hormone (TSH) 0.69 uIU/mL (0.358-3.74)
== END ==
PROVIDERS: Visit Provider Family Medicine
DX: E03.9 Hypothyroidism, unspecified (principal)
CPT/HCPCS: 36415; 84443

== ENCOUNTER 2021-06-01 15:09 | Emergency (ER) | payer MEDICARE, SELFPAY ==
[2021-06-01 15:10] VITALS: BP 150/76; PULSE 84; RESP 14; TEMP 37; O2SAT 97; BMI 32.5
--- NOTE | 2021-06-01 16:12 | CT_ITS ---
STUDY: CT BRAIN WITHOUT CONTRAST REASON FOR EXAM: Female, 81 years old. Head injury RADIATION DOSAGE (If Supplied By Facility): CTDIvol = ( 44.99 ) mGy, DLP = ( 779.24 ) mGycm TECHNIQUE: Transaxial CT imaging of the brain was performed without administration of intravenous contrast material. Individualized dose optimization techniques were used for this CT. COMPARISON: No relevant priors. FINDINGS: Normal soft tissue structures. Normal calvarium. Slightly prominent ventricles and extra-axial spaces with mild atrophy. Probable 1.2 x 1.8 cm calcified meningioma between the frontal lobes. Mild white matter microangiopathic ischemic changes of the cerebral hemispheres. Normal basal ganglia and thalami. Normal brainstem. Normal cerebellum. There is no intracranial hemorrhage. There are no findings of an acute ischemic infarction. Normal visualized paranasal sinuses. CT/Brain/Head without Contrast IMPRESSION: No acute intracranial pathology of the brain. Probable frontal calcified meningioma. Electronically Signed: Cody Edmond DO at 16:53 EDT Tel [phone], Service support ,
--- NOTE | 2021-06-01 16:12 | CT_ITS ---
STUDY: CT CERVICAL SPINE WITHOUT CONTRAST REASON FOR EXAM: Female, 81 years old. Head injury RADIATION DOSAGE (If Supplied By Facility): CTDIvol = ( 16.16 ) mGy, DLP = ( 311.78 ) mGycm TECHNIQUE: High resolution transaxial imaging was performed without contrast material. Sagittal and coronal images were reconstructed. Individualized dose optimization techniques were used for this CT. COMPARISON: None FINDINGS: Normal craniovertebral junction. Normal anterior atlantoaxial articulation. Normal odontoid process. Normal cervical lordosis. Normal vertebral bodies and posterior osseous elements. There is an 8 mm sclerotic lesion of T1. C2-3: Minimal spurring at the endplates. Narrowed disc height. Normal central canal. Minimal spurring protruding into the intervertebral neuroforamina. C3-4: Spurring at the endplates. Narrowed disc height. Normal central canal. Uncovertebral spurring narrowing the intervertebral neuroforamina, left more than right. C4-5: Spurring at the endplates. Narrowed disc height. Normal central canal. Uncovertebral spurring narrowing the intervertebral neuroforamina, left more than right. C5-6: Spurring at the endplates. Narrowed disc height. Normal central canal. Uncovertebral spurring narrowing the intervertebral neuroforamina, right more than left. C6-7: Spurring at the endplates. Narrowed disc height. Normal central canal. Uncovertebral spurring narrowing the intervertebral neuroforamina, right more than left. C7-T1: Normal endplates. Grade 1 spondylolisthesis. Normal disc height and morphology. Normal central canal and intervertebral neuroforamina. Normal visualized soft tissue structures. CT/Spine Cervical without Contras IMPRESSION: Degenerative changes of the cervical spine. Great 1 spondylolisthesis at C7-T1. Sclerotic T1 lesion requires further evaluation. Electronically Signed: Cody Edmond DO at 17:06 EDT Tel [phone], Service support ,
--- NOTE | 2021-06-01 16:14 | ED.VIS.FALL ---
HPI HPI - Fall History of Present Illness Chief Complaint: Fall Informant: patient and family Narrative Narrative: Patient presents with daughter by private vehicle for mechanical fall at 1 PM today. Patient states heard the phone ring she was walking to her when she stumbled hitting her head against a wall putting a hole in it. She took Tylenol right away. Denies any current headache neck pain. Denies anticoagulation medications. Patient uses assistive device for ambulation when she is outside. Does have history of multiple myeloma followed by oncology with monthly treatments for bone strengthening. She stopped chemotherapy over a year ago. Denies extremity pain or paresthesias. Denies back chest or abdominal pain. From records also history of idiopathic thrombocytopenia. [facility] Medical History (Updated 06/01/21 @ 17:[address] Timmy Keenan DO) Acute renal failure Basal cell carcinoma (BCC) of skin of face Breast cancer Cataracts, bilateral Chronic idiopathic thrombocytopenia Dehydration Depression Diabetes mellitus type 2 in obese Diastolic dysfunction Gastroenteritis Gastroesophageal reflux disease Hyperlipidemia Hypertension Hypokalemia Hypophosphatemia Hypothyroidism (acquired) Leukopenia Metabolic acidosis Multiple myeloma Obstructive sleep apnea Osteoporosis Home Medications cetirizine 10 mg PO DAILY 10/07/13 [History Last Taken Unknown] levothyroxine 100 mcg PO DAILY 10/07/13 [History Last Taken 01/30/19 06:15] multivitamin with folic acid 1 tab PO DAILY 10/07/13 [History Last Taken Unknown] sertraline 150 mg PO DAILY 10/07/13 [History Last Taken Unknown] insulin detemir U-100 50 units SC QHS 11/24/16 [History Last Taken Unknown] valsartan 80 mg PO DAILY 11/24/16 [History Last Taken 12/26/16] calcium carbonate-vitamin D3 1 tab PO DAILY 12/25/16 [History Last Taken Unknown] insulin lispro [Humalog U-100 Insulin] 12 unit SQ TID 12/25/16 [History Last Taken Unknown] omeprazole 20 mg tablet,delayed release 20 mg PO DAILY PRN 09/03/19 [History Last Taken Unknown] cholecalciferol (vitamin D3) 2,000 unit PO DAILY 06/01/21 [History Last Taken Unknown] potassium chloride 20 meq PO DAILY 06/01/21 [History Last Taken Unknown] Allergy/AdvReac Type Severity Reaction Status Date / Time lisinopril Allergy Unknown Verified 06/01/21 15:12 Family History Mother CVA (cerebral vascular accident) Surgical History History of thyroidectomy Hx of cholecystectomy Hx of tonsillectomy Social History Smoking Status: Never smoker second hand exposure: No alcohol intake: never substance use type: does not use caffeine: Yes what type of physical activity do you participate in: none frequency: does not exercise seatbelt use: always ROS ROS ED Constitutional Constitutional ED: Denies chills, fever(s) or sweats Eyes Eyes: Denies change in vision ENT ENT ED: Denies dysphagia or sore throat Cardiovascular Cardiovascular: Denies chest pain, leg edema, palpitations or racing heartbeat Respiratory/Chest Respiratory/Chest: Denies cough, dyspnea or dyspnea on exertion Gastrointestinal Gastrointestinal: Denies abdominal pain, diarrhea, nausea or vomiting Genitourinary Genitourinary ED: Denies dysuria, hematuria or urinary frequency Musculoskeletal Musculoskeletal: Denies back pain, extremity pain or neck pain Integumentary Denies rash or wounds Neurologic Neurologic: Denies headache(s), paresthesias or weakness EXAM Physical Exam Const Vital Signs: 06/01/21 15:10 06/01/21 16:50 Temperature 98.6 F Temperature Source Temporal Pulse Rate 84 Respiratory Rate 14 Respiratory Effort Normal Respiratory Depth Normal Respiratory Pattern Normal Blood Pressure 150/76 H Blood Pressure Mean 100 Pulse Ox 97 Oxygen Delivery Method Room Air Room Air Positive well nourished and well developed Constitutional Narrative: GCS 15. General Appearance ED: well developed and NAD HEENT Reports moist mucous membranes HEENT Narrative: No hemotympanum, no head contusions or lacerations. normocephalic and atraumatic Eyes PERRL, EOMs intact bilaterally and conjunctivae normal General Eye ED: Yes normal appearance of both eyes Neck no lymphadenopathy and supple General: Negative for tenderness Chest Wall Chest: Negative for tenderness Resp normal respiratory effort and normal air movement Effort and Inspection: symmetric chest movement; Negative for respiratory distress Cardio regular rate, regular rhythm and no murmurs Peripheral Pulses: pulses 2+ throughout GI normal to inspection, nondistended, normoactive bowel sounds and non-tender Palpation: Negative for guarding or rebound tenderness present Back/Spine no CVA tenderness and no thoracic nor lumbar tenderness Extremity normal to inspection General Extremety ED: Negative for edema or tenderness General Extremity: Negative for edema Neuro oriented x3, CN's II-XII intact bilaterally and no sensory deficits noted Sensorium / Orientation: awake and alert Skin no rashes or lesions noted and no wounds MDM MDM MDM Narrative Medical decision making narrative: Patient head injury noted history of idiopathic thrombocytopenia however her previous platelets were in the 90s. CT head and neck obtained no acute process reported bony lesion at T1 reported needing further work-up, however she does have history of multiple myeloma. Extensive discussion with patient and daughter initial evaluation for living will and DNR status. She did report that she would not want any heroic measures. She is going to [facility] tomorrow. Discussed decision should be made and DNR forms can be signed at the facility to follow her wishes. All questions were answered. Radiography Diagnostic Testing: Radiology Impression Brain CT 06/01/21 16:12 IMPRESSION: No acute intracranial pathology of the brain. Probable frontal calcified meningioma. Electronically Signed: Cody Edmond DO at 16:53 EDT Tel [phone], Service support , Cervical Spine CT 06/01/21 16:12 IMPRESSION: Degenerative changes of the cervical spine. Great 1 spondylolisthesis at C7-T1. Sclerotic T1 lesion requires further evaluation. Electronically Signed: Cody Edmond DO at 17:06 EDT Tel [phone], Service support , Discharge Plan Triage Chief Complaint: Fall ED Provider: Timmy Keenan Dx/Rx/DC Orders Clinical Impression: CHI (closed head injury), History of multiple myeloma Instructions: ED Head Injury (Adult) Prescriptions: No Action omeprazole 20 mg tablet,delayed release (DR/EC) 20 mg PO DAILY PRN (Reason: gerd) RF: 0 cetirizine 10 MG tablet 10 mg PO DAILY RF: 0 sertraline 100 MG tablet 150 mg PO DAILY RF: 0 levothyroxine 25 MCG tablet 100 mcg PO DAILY RF: 0 multivitamin with folic acid 1 TABLET tablet 1 tab PO DAILY RF: 0 insulin detemir U-100 100 UNITS/ML insulin pen 50 units SC QHS RF: 0 valsartan 160 MG tablet 80 mg PO DAILY RF: 0 Humalog U-100 Insulin 100 UNIT/ML cartridge 12 unit SQ TID RF: 0 calcium carbonate-vitamin D3 1 EACH tablet,chewable 1 tab PO DAILY RF: 0 cholecalciferol (vitamin D3) 50 mcg (2,000 unit) tablet 2,000 unit PO DAILY RF: 0 potassium chloride 20 mEq tablet extended release 20 meq PO DAILY RF: 0 Primary Care Provider: Daniel Nair Referrals: Daniel Nair MD [Primary Care Provider] - 3-5 Days Disposition Disposition: Home, Self Care Discharge Date/Time: 06/01/21 17:54
== END 2021-06-01 17:54 | disposition home or self-care (01) ==
PROVIDERS: Emergency Provider Emergency Medicine; PCP Family Medicine
DX: S09.90XA Unspecified injury of head, initial encounter (principal); E03.9 Hypothyroidism, unspecified; E11.36 Type 2 diabetes mellitus with diabetic cataract; F32.9 Major depressive disorder, single episode, unspecified; K21.9 Gastro-esophageal reflux disease without esophagitis; G47.33 Obstructive sleep apnea (adult) (pediatric); Z79.4 Long term (current) use of insulin; Z79.899 Other long term (current) drug therapy; X58.XXXA Exposure to other specified factors, initial encounter
CPT/HCPCS: 70450; 72125; 99282

== ENCOUNTER → 2021-06-15 13:49 | Outpatient (CLI) | payer MEDICARE, SELFPAY ==
[2021-06-15 18:01] LABS: Hemoglobin A1c 6.7 % (3.8-5.6)
[2021-06-15 18:15] LABS: Anion Gap 12 (5-15); BUN 35 mg/dL (7-18); BUN/Creat Ratio 17.8 RATIO (10-20); Calcium,Total 9.3 mg/dL (8.5-10.1); Chloride 105 mmol/L (98-107); Cholesterol 162 mg/dL (200); Creatinine, Serum 1.97 mg/dL (0.55-1.02); EST Glomerular Filtration Rate 26 mL/min (>60); Est Glom Filt Rate - Afr Amer 31 mL/min (>60); Glucose 215 mg/dL (74-106); High Density Lipoprotein 35 mg/dL; Potassium 3.8 mmol/L (3.5-5.1); Sodium Level 140 mmol/L (136-145); Thyroid Stim Hormone (TSH) 0.77 uIU/mL (0.358-3.74); Triglycerides 199 mg/dL; Very Low Density Lipoprotein 40 mg/dL (5-40)
[2021-06-16 14:02] LABS: Hemoglobin 9.6 g/dL (12.0-15.0); Mean Corpuscular Hgb 34.2 pg (27.0-32.0); Mean Corpuscular Volume 106.8 fL (81-99); Mean Platelet Vol. 11.6 fl (6.2-12.0); POSITIVE COUNT YES; Platelet Count 95 K/mm3 (150-450); RBC Distribution Width CV 14.6 % (11.6-14.6); RBC Distribution Width SD 56.8 fl (35.1-43.9); Red Blood Count 2.81 M/mm3 (4.2-5.4); White Blood Count 3.7 K/mm3 (4.4-11.0)
[2021-06-16 14:05] LABS: Scan Indicated on CBC? Y/N NO
== END ==
PROVIDERS: PCP Family Medicine; Referring Provider Family Medicine; Visit Provider Family Medicine
DX: E11.9 Type 2 diabetes mellitus without complications (principal); R53.83 Other fatigue
CPT/HCPCS: 36415; 80048; 80061; 83036; 84443; 85027

== ENCOUNTER 2021-06-25 13:45 | Observation (INO) | payer MEDICARE, SELFPAY ==
[2021-06-25 13:45] VITALS: BP 132/64; PULSE 98; RESP 16; TEMP 36.8; O2SAT 98; BMI 31.7
--- NOTE | 2021-06-25 14:02 | RAD_ITS ---
HISTORY: injury, pain. TECHNIQUE: XR Hip Unilateral with Pelvis when performed; 2-3 Views. # of images incl. paperwork: 3. COMPARISON: CT 11/04/2017. FINDINGS: OSSEOUS STRUCTURES: No acute displaced fracture identified. Note that overlapping bowel shadows may obscure detail. Mineralization unremarkable. ALIGNMENT/JOINTS: No dislocation. Mild degenerative changes of the hips. RAD/HIP, UNI W/ Pelvis 2-3 Views IMPRESSION: No acute fracture or dislocation identified in the right hip. at 1519 Reported and signed by: Adriana Marsh MD Electronically Signed: Adriana Marsh MD at 15:18 EDT Tel , Service support ,
--- NOTE | 2021-06-25 14:03 | ED.VIS.FALL ---
HPI HPI - Fall History of Present Illness Chief Complaint: Fall Informant: patient Occured/Mechanism Occurred: Weeks (2) Mechanism/Context: Yes same level fall and Yes trip Pain/Injury Location: Right hip and right elbow Quality of Pain: Aching Current Severity: Mild Maximum Severity: Moderate Worsened by: Walking, moving Relieved by: Remaining still and resting Associated Symptoms Associated Symptoms: Negative for Parasthesias, Weakness, Loss of function, Inability to ambulate and Loss of consciousness Narrative Narrative: Patient fell just over 2 weeks ago, she thinks she tripped on the footstool that is in her independent living apartment at [place], she fell to her right elbow and her right hip/side. She did not have any pain in her right hip for about a week, but in the past week it has been bothering her more and more and she is having more difficulty walking although she has been doing so with the assistance of her walker. She states the elbow feels fine now, it was sore for a few days. She denies any numbness or tingling. No abdominal pain, back pain, she did not hit her head, and she denies any recent illness or other injury. [facility] Medical History (Updated 06/25/21 @ 15:[address] Umer Hill MD) Acute renal failure Basal cell carcinoma (BCC) of skin of face Breast cancer Cataracts, bilateral Chronic idiopathic thrombocytopenia Dehydration Depression Diabetes mellitus type 2 in obese Diastolic dysfunction Gastroenteritis Gastroesophageal reflux disease Hyperlipidemia Hypertension Hypokalemia Hypophosphatemia Hypothyroidism (acquired) Leukopenia Metabolic acidosis Multiple myeloma Obstructive sleep apnea Osteoporosis Home Medications cetirizine 10 mg PO DAILY 10/07/13 [History Last Taken Unknown] levothyroxine 100 mcg PO DAILY 10/07/13 [History Last Taken 01/30/19 06:15] multivitamin with folic acid 1 tab PO DAILY 10/07/13 [History Last Taken Unknown] sertraline 150 mg PO DAILY 10/07/13 [History Last Taken Unknown] valsartan 80 mg PO DAILY 11/24/16 [History Last Taken 12/26/16] calcium carbonate-vitamin D3 1 tab PO DAILY 12/25/16 [History Last Taken Unknown] insulin lispro [Humalog U-100 Insulin] 12 unit SQ TID 12/25/16 [History Last Taken Unknown] omeprazole 20 mg tablet,delayed release 20 mg PO DAILY PRN 09/03/19 [History Last Taken Unknown] cholecalciferol (vitamin D3) 2,000 unit PO DAILY 06/01/21 [History Last Taken Unknown] potassium chloride 20 meq PO DAILY 06/01/21 [History Last Taken Unknown] insulin glargine [Lantus Solostar U-100 Insulin] 25 unit SUBCUT QHS 06/25/21 [History Last Taken Unknown] Allergy/AdvReac Type Severity Reaction Status Date / Time lenalidomide [From Revlimid] Allergy Rash Verified 06/25/21 13:46 lisinopril Allergy Unknown Verified 06/25/21 13:46 Family History Mother CVA (cerebral vascular accident) Surgical History History of thyroidectomy Hx of cholecystectomy Hx of tonsillectomy Social History Smoking Status: Never smoker second hand exposure: No alcohol intake: never substance use type: does not use caffeine: Yes what type of physical activity do you participate in: none frequency: does not exercise seatbelt use: always ROS ROS ED Constitutional Constitutional ED: Denies chills or fever(s) Eyes Eyes: Denies change in vision or diplopia ENT ENT ED: Denies rhinorrhea or sore throat Cardiovascular Cardiovascular: Denies chest pain or palpitations Respiratory/Chest Respiratory/Chest: Denies cough or dyspnea Gastrointestinal Gastrointestinal: Denies abdominal pain, diarrhea, nausea or vomiting Genitourinary Genitourinary ED: Denies dysuria or hematuria Musculoskeletal Musculoskeletal: Reports as per HPI and extremity pain; Denies back pain or neck pain Integumentary Denies abscess or rash Neurologic Neurologic: Denies headache(s), paresthesias or weakness Psychiatric Psychiatric: Denies anxiety or suicidal thoughts EXAM Physical Exam Const Vital Signs: 06/25/21 13:45 06/25/21 14:08 Temperature 98.2 F Temperature Source Temporal Pulse Rate 98 Respiratory Rate 16 Respiratory Effort Normal Non-Labored Respiratory Depth Normal Respiratory Pattern Normal Blood Pressure 132/64 H Blood Pressure Mean 86 Pulse Ox 98 Oxygen Delivery Method Room Air Room Air Positive well nourished and well developed General Appearance ED: well developed and NAD HEENT Reports moist mucous membranes normocephalic and atraumatic Eyes PERRL and EOMs intact bilaterally Neck full ROM and supple Resp normal respiratory effort and clear to auscultation bilaterally Cardio regular rate, regular rhythm and no murmurs GI non-tender and non-distended Auscultation: normoactive bowel sounds Palpation: soft Back/Spine no CVA tenderness General Back: other FROM Extremity normal to inspection and full ROM Extremity Narrative: Right lower extremity: Mildly tender right hip/greater trochanter. Pain with logroll. No shortening or deformity and limited range of motion of right hip due to pain. No tenderness in the right lower extremity distal to the hip. The right elbow is nontender, has full range of motion including pronation supination, is without any signs of bruising or injury or swelling. Extensor mechanism intact. The other 2 extremities are benign. General Extremety ED: Yes tenderness; Negative for edema or pulses abnormal General Extremity: Negative for edema or pulses abnormal Neuro oriented x3, CN's II-XII intact bilaterally and no sensory deficits noted Sensorium / Orientation: awake and alert Motor Exam: strength 5/5 throughout Skin no rashes or lesions noted and no wounds MDM MDM MDM Narrative Medical decision making narrative: Patient is having pain in the right hip, I am concerned that she is a safety issue with trying to put weight on it if it is an occult fracture. I think she needs an MRI. Will discuss with hospitalist for admission/observation since MRI is not currently available stat. CT advised, we will get that in the ED first prior to admitting the patient to evaluate further for occult fracture. Radiography Diagnostic Testing: Clinical Impression(s) from Imaging Studies Hip/Pelvis X-Ray 06/25/21 14:02 IMPRESSION: No acute fracture or dislocation identified in the right hip. at 1519 Reported and signed by: Adriana Marsh MD Electronically Signed: Adriana Marsh MD at 15:18 EDT Tel , Service support , Discharge Plan Dx/Rx/DC Orders Clinical Impression: Injury of right hip, Inability to ambulate due to right hip Disposition Disposition: Acute Care Hospital [facility]
--- NOTE | 2021-06-25 16:24 | CT_ITS ---
EXAM: CT RIGHT LOWER EXTREMITY WITHOUT INTRAVENOUS CONTRAST, HIP CLINICAL INDICATION: injury, pain TECHNIQUE: Helically acquired images were obtained of the right hip without intravenous contrast. This CT exam was performed using one or more of the following dose reduction techniques: automated exposure control, adjustment of the mA and/or kV according to patient size, and/or use of iterative reconstruction technique. This report was created using [employer] report generation technology. COMPARISON: X-ray 06/25/2021. FINDINGS: BONES/JOINTS: There is an acute, nondisplaced fracture of the anterior acetabulum/proximal superior pubic ramus. No intra-articular extension. No angulation. No additional fracture. Preservation of the joint space. No sclerotic or destructive changes. SOFT TISSUES: Unremarkable. No soft tissue swelling or gas. No radiopaque foreign body. CT/Extremity Lower without Contra IMPRESSION: Nondisplaced fracture of the right superior pubic ramus/anterior acetabulum. Electronically Signed: Idania Du MD at 19:33 EDT Tel , Service support ,
--- NOTE | 2021-06-25 16:34 | HP.PCM.HOS_ITS ---
HPI - General General Date of Admission: 06/25/21 Date of Service: 06/25/21 Chief Complaint: Right hip pain/inability to ambulate HPI Narrative MAGDI IBRAHIM, is a 81 F who presented to the emergency department [facility] on 06/25/2021 with a chief complaint of persistent right hip pain. Upon presentation the patient states she fell approximately 2 weeks ago. She states she believes she tripped on a footstool that is in her independent living apartment at [place]. When she fell she fell onto her right elbow and right hip. She states that she did not have any pain in her right hip for about a week and was continuing to ambulate on it but over the last 7 days she has had persistent right hip pain that has been becoming more and more painful for her. She has a wheeled walker that she has been sitting on and scooting around backwards onto her house for mobility. She complains of significant pain when trying to move the joint and all of her pain appears to be in the groin region. She denies any other associated symptoms. She states she had no loss of consciousness and did not hit her head at the time. In the emergency department her vital signs were stable. Hip and pelvic x-ray were performed and no acute fractures or dislocations were identified in the right hip. There was no noted dislocation. Given the patient's inability to ambulate and worsening hip pain there is concerned that she may have occult fracture. Given the fact that she is 2 weeks out we will obtain a CT scan which is pending at the time of admission. If the CT is positive then she will need an orthopedic referral for management. If the CT scan is negative then we will need to proceed with an MRI to rule out occult hip fracture given her pain and decreased mobility. No labs have been obtained as of yet unknown draw are pending. She will be admitted to [facility] for further care. [facility] Medical History (Updated 06/25/21 @ 16:[address] Cathie Diaz DO) Acute renal failure Basal cell carcinoma (BCC) of skin of face Breast cancer Cataracts, bilateral Chronic idiopathic thrombocytopenia Dehydration Depression Diabetes mellitus type 2 in obese Diastolic dysfunction Gastroenteritis Gastroesophageal reflux disease Hyperlipidemia Hypertension Hypokalemia Hypophosphatemia Hypothyroidism (acquired) Leukopenia Metabolic acidosis Multiple myeloma Obstructive sleep apnea Osteoporosis Home Medications cetirizine 10 mg PO DAILY 10/07/13 [History Last Taken Unknown] levothyroxine 100 mcg PO DAILY 10/07/13 [History Last Taken 01/30/19 06:15] multivitamin with folic acid 1 tab PO DAILY 10/07/13 [History Last Taken Unknown] sertraline 150 mg PO DAILY 10/07/13 [History Last Taken Unknown] valsartan 80 mg PO DAILY 11/24/16 [History Last Taken 12/26/16] calcium carbonate-vitamin D3 1 tab PO DAILY 12/25/16 [History Last Taken Unknown] insulin lispro [Humalog U-100 Insulin] 12 unit SQ TID 12/25/16 [History Last Ta gregg Unknown] omeprazole 20 mg tablet,delayed release 20 mg PO DAILY PRN 09/03/19 [History Last Taken Unknown] cholecalciferol (vitamin D3) 2,000 unit PO DAILY 06/01/21 [History Last Taken Unknown] potassium chloride 20 meq PO DAILY 06/01/21 [History Last Taken Unknown] insulin glargine [Lantus Solostar U-100 Insulin] 25 unit SUBCUT QHS 06/25/21 [History Last Taken Unknown] Allergy/AdvReac Type Severity Reaction Status Date / Time lenalidomide [From Revlimid] Allergy Rash Verified 06/25/21 13:46 lisinopril Allergy Unknown Verified 06/25/21 13:46 Family History Mother CVA (cerebral vascular accident) Surgical History History of thyroidectomy Hx of cholecystectomy Hx of tonsillectomy Social History Smoking Status: Never smoker second hand exposure: No alcohol intake: never substance use type: does not use caffeine: Yes what type of physical activity do you participate in: none frequency: does not exercise seatbelt use: always ROS Constitutional Constitutional: Denies anorexia, change in weight, chills, fatigue, fever(s), malaise, night sweats, weakness or other Eyes Eyes: Denies blurry vision, change in eye color, change in vision, discharge from eye(s), double vision, erythema, eye pain, loss of vision or other ENT HEENT: Denies abnormal hearing, dysphagia, ear pain, epistaxis, headache(s), hearing loss, nasal congestion, nasal discharge, post nasal drip, sinus pressure, sore throat or other Cardiovascular Cardiovascular: Denies chest pain, claudication, dyspnea on exertion, edema, lightheadedness, orthopnea, palpitations, paroxysmal nocturnal dyspnea, rapid heart rate, syncope or other Respiratory/Chest Respiratory/Chest: Denies cough, dyspnea, excessive phlegm production, hemoptysis, productive cough, shortness of breath at rest, shortness of breath with exertion, wheezing or other Gastrointestinal Gastrointestinal: Denies abdominal pain, coffee ground emesis, constipation, diarrhea, dyspepsia, hematemesis, hematochezia, loose stools, melena, nausea, vomiting or other Genitourinary Genitourinary: Denies burning urination, difficulty urinating, dysuria, hematuria, nocturia, urinary frequency, urinary hesitancy, urinary incontinence, urinary urgency or other Musculoskeletal Musculoskeletal: Reports joint pain and joint stiffness Neurologic Neurologic: Reports abnormal gait and other Details: Falls ; Denies abnormal speech, confusion, disequilibrium, dizziness, focal weakness, headache(s), numbness, paresthesias, seizure-like activity, seizures, syncope, tingling or tremor(s) Psychiatric Psychiatric: Denies anxiety, depression, homicidal ideation, suicidal ideation or other Endocrine Endocrinology: Denies change in body appearance, cold intolerance, excessive sweating, heat intolerance, polydipsia, polyuria or other Hematologic/Lymphatic Hematologic/Lymphatic: Denies anemia, easy bleeding, easy bruising, lymphadenopathy or other Allergic/Immunologic Allergic/Immunologic: Denies rhinitis, hives, eczemia, asthma or other Vital Signs Vital Signs Vital Signs: 06/25/21 13:45 06/25/21 14:08 Temperature 98.2 F Temperature Source Temporal Pulse Rate 98 Respiratory Rate 16 Respiratory Effort Normal Non-Labored Respiratory Depth Normal Respiratory Pattern Normal Blood Pressure 132/64 H Blood Pressure Mean 86 Pulse Ox 98 Oxygen Delivery Method Room Air Room Air Weight Weight: 76.204 kg Body Mass Index (BMI) 31.7 Physical Exam Const alert, oriented x3 and no apparent distress Constitutional Narrative: Obese elderly white female lying in bed flat on her back, appears in no discomfort at this time, nontoxic, very pleasant General Appearance: cooperative HEENT normocephalic, head/scalp atraumatic, hearing grossly normal bilaterally and moist oral mucous membranes HEENT Narrative: Dentition with multiple fillings but teeth are intact, Mallampati 2, no thrush Eyes PERRL and EOMs intact bilaterally Eyes Narrative: Conjunctiva are injected-patient states she has chronic dry eye and this is her baseline, no scleral icterus Neck no lymphadenopathy, supple, no JVD and no carotid bruits Neck Narrative: Trachea midline, no thyroid enlargement Resp normal respiratory effort, no retractions, no use of accessory muscles and clear to auscultation bilaterally Auscultation: Negative for crackles, rales, rhonchi or wheezes Cardio regular rate, regular rhythm, S1 normal heart sound, S2 normal heart sound, no murmurs, no rub, no gallops, no clicks and no JVD GI normal to inspection, nondistended, normoactive bowel sounds, soft to palpation, non-tender, non-distended and hepatosplenomegaly Extremity no clubbing, cyanosis or edema Extremity Narrative: Right leg without any shortening or external rotation, tender upon active movement, mild pain with palpation at the groin, pain with active and passive motion, limited strength in right lower extremity secondary to pain Peripheral Pulses: Yes pulses 2+ throughout Skin no wounds, skin turgor normal, no jaundice, no petechiae and no mottling Skin Narrative: Scattered seborrheic keratoses, no rashes Neuro oriented x3, CN's II-XII intact bilaterally and no focal motor deficits Neuro Narrative: Generalized weakness but right lower extremity with increased weakness compared to all other extremities secondary to pain elicited with active movement Sensorium / Orientation: awake and alert Speech: speech normal Psych Psych Narrative: Mildly anxious but very pleasant Results Lab / Micro Data Attestation: I reviewed the patient's lab results. Radiology Impression Hip/Pelvis X-Ray 06/25/21 14:02 IMPRESSION: No acute fracture or dislocation identified in the right hip. at 1519 Reported and signed by: Adriana Marsh MD Electronically Signed: Adriana Marsh MD at 15:18 EDT Tel , Service support , Assessment & Plan Assessment/Plan (1) Right hip pain: (2) Inability to ambulate due to right hip: PLAN: Acute right hip pain with the inability to ambulate -X-rays negative -Initial injury was approximately 2 weeks ago and pain has been worsening -Check CT of right hip and pelvis -If negative will need MR tomorrow -If positive will consult orthopedic surgery -CBC and BMP pending -We will check liver function and coags in a.m. -We will need to risk stratify if she is a surgical candidate -PT and OT will need consulted after weaning know what we are dealing with -Pain management with as needed Tylenol -As needed oxycodone low-dose for breakthrough pain -Bowel regimen -Check vitamin D level -May need placement at discharge and skilled Frequent falls -Patient has had at least 2 falls recently -It sounds like she furniture walks at home without using his assistive device consistently -She does admit to using a walker while out in public -Recommended continued OT and PT whether inpatient or outpatient depending on what happens with her hip Hypertension -Hold valsartan given recent elevation in serum creatinine until reassessment can be performed -We will use as needed hydralazine for systolic greater than 160 for blood pressure control GERD -Continue omeprazole Hypothyroidism -Continue levothyroxine History of multiple myeloma -Is on chronic chemotherapy -Follows with Dr. Toussaint -No lytic lesions noted on x-ray -CT pending History of breast cancer -No current issues CKD stage IIIb -Serum creatinine at baseline appears to be 1.1-1.3 -Recently in the emergency department on 06/15/2021 had a serum creatinine of 1 0.97 -Admission BMP is pending -Hold losartan DM-2 -Continue Lantus 25 units at at bedtime -Would consider decreasing the dose if n.p.o. after midnight for surgical procedure but given that this is an unknown at this time we will continue tonight -Continue lispro 12 units 3 times daily with meals -SSI -Accu-Cheks History of vitamin D deficiency -Patient is currently on vitamin D 2000 units daily -Last level documented in our system was from 12/16/2019 and showed it was 45.1 -Check vitamin D level Obesity -Recommend weight loss -Complicates overall treatment, prognosis, outcomes DVT prophylaxis -Hep SQ 3 times daily with most recent creatinine -SCDs CODE STATUS -Full code unverified Charges/Coding Visit Charges Inpatient E&M: 37819 Init Hosp L3
[2021-06-25 17:01] VITALS: BP 126/82; PULSE 86; RESP 17; TEMP 37; O2SAT 97
[2021-06-25 17:08] LABS: Absolute Lymphocyte Count 0.82 X10^3/uL (0.83-4.51); Absolute Neutrophil Count 2.3 X10^3/uL (2.0-7.7); Basophil# 0.02 X10^3/uL; Basophil% 0.5 % (0-1); Eosinophil# 0.05 X10^3/uL; Eosinophils% 1.3 % (0-5); Hematocrit 27.4 % (37-47); Hemoglobin 8.8 g/dL (12.0-15.0); Lymphocyte # 0.82 X10^3/ul (0.83-4.51); Lymphocyte % 22.1 % (19-41); Mean Corp Hgb Conc 32.1 g/dL (32-36); Mean Corpuscular Hgb 33.7 pg (27.0-32.0); Mean Platelet Vol. 10.3 fl (6.2-12.0); Monocyte# 0.45 X10^3/uL; Monocyte% 12.1 % (0-10); NRBC Flagged by Analyzer 0 % (0-5); Neutrophil # 2.34 X10^3/uL (2.7-7.7); Neutrophil % 63.2 % (47-70); POSITIVE COUNT YES; Platelet Count 80 K/mm3 (150-450); RBC Distribution Width CV 14.6 % (11.6-14.6); RBC Distribution Width SD 55.8 fl (35.1-43.9); Red Blood Count 2.61 M/mm3 (4.2-5.4); White Blood Count 3.7 K/mm3 (4.4-11.0)
[2021-06-25 17:09] LABS: Differential Indicated SCAN CRITERIA MET
[2021-06-25 17:26] LABS: Anion Gap 8 (5-15); BUN 35 mg/dL (7-18); BUN/Creat Ratio 21.6 RATIO (10-20); Calcium,Total 9.9 mg/dL (8.5-10.1); Chloride 106 mmol/L (98-107); Creatinine, Serum 1.62 mg/dL (0.55-1.02); EST Glomerular Filtration Rate 32 mL/min (>60); Est Glom Filt Rate - Afr Amer 39 mL/min (>60); Estimated Creatinine Clearance 19.86 ml/min; Glucose 114 mg/dL (74-106); Potassium 4.5 mmol/L (3.5-5.1); Sodium Level 140 mmol/L (136-145)
[2021-06-25 17:29] LABS: Differential Comment SCANNED
--- NOTE | 2021-06-25 18:10 | PCS.PANDOC ---
PANDEMIC DOCUMENTATION INITIATED: Date: 04/17/2021 Time: 190
[2021-06-25] MEDS: 0.9% Normal Saline 1,000 ML 50 ML IV (18:25)
[2021-06-25 18:28] VITALS: BP 144/74; PULSE 66; RESP 18; TEMP 36.4; O2SAT 93
[2021-06-25 18:29] VITALS: BMI 30.7
--- NOTE | 2021-06-25 18:38 | NURSING ---
pt received flu vaccine this season
--- NOTE | 2021-06-25 18:41 | PCS.PANDOC ---
PANDEMIC DOCUMENTATION INITIATED: Date: 04/17/2021 Time: 189906/25/21 183
[2021-06-25 21:15] VITALS: BP 129/72; PULSE 68; RESP 16; TEMP 36.8; O2SAT 94
[2021-06-25 21:25] LABS: Bedside Glucose 187 mg/dL (70-110)
--- NOTE | 2021-06-25 22:01 | PN.HOSP_ITS ---
Hospitalist Note Discussed case with Dr. Wilkinson, manager fashion for no doc and reviewed case as well as imaging. Confirmed no surgery in this particular case. Patient to remain non- weight bearing to that extremity and can follow-up outpatient.
--- NOTE | 2021-06-25 22:01 | PCM.HOSP.N ---
Hospitalist Note Discussed case with Dr. Wilkinson, operations support manager for no doc and reviewed case as well as imaging. Confirmed no surgery in this particular case. Patient to remain non-weight bearing to that extremity and can follow-up outpatient.
[2021-06-25] MEDS: Heparin Injection (Vial) 5,000 UNIT/ML VIAL 5000 UNIT SC (22:50)
[2021-06-26] VITALS (8 sets, daily range): BP systolic 126–152; BP diastolic 63–79; PULSE 84–85; RESP 16–17; TEMP 36.5–37; O2SAT 94–98
[2021-06-26] MEDS: Levothyroxine 100 MCG Tablet PO (06:24)
[2021-06-26] MEDS: Heparin Injection (Vial) 5,000 UNIT/ML VIAL 5000 UNIT SC ×3 (06:25→21:31)
[2021-06-26 06:36] LABS: Bedside Glucose 106 mg/dL (70-110)
[2021-06-26 07:01] LABS: Absolute Lymphocyte Count 1.03 X10^3/uL (0.83-4.51); Absolute Neutrophil Count 1.4 X10^3/uL (2.0-7.7); Basophil# 0.01 X10^3/uL; Basophil% 0.3 % (0-1); Eosinophil# 0.06 X10^3/uL; Eosinophils% 2.1 % (0-5); Hematocrit 28.4 % (37-47); Hemoglobin 9.1 g/dL (12.0-15.0); Lymphocyte # 1.03 X10^3/ul (0.83-4.51); Mean Corpuscular Hgb 34.1 pg (27.0-32.0); Mean Corpuscular Volume 106.4 fL (81-99); Mean Platelet Vol. 10.9 fl (6.2-12.0); Monocyte# 0.35 X10^3/uL; Monocyte% 12.2 % (0-10); NRBC Flagged by Analyzer 0 % (0-5); Neutrophil # 1.39 X10^3/uL (2.7-7.7); Neutrophil % 48.7 % (47-70); POSITIVE COUNT YES; Platelet Count 69 K/mm3 (150-450); RBC Distribution Width CV 14.5 % (11.6-14.6); RBC Distribution Width SD 55.9 fl (35.1-43.9); Red Blood Count 2.67 M/mm3 (4.2-5.4); White Blood Count 2.9 K/mm3 (4.4-11.0)
[2021-06-26 07:05] LABS: International Normalized Ratio 1.3; Prothrombin Time (Protime)PT. 15.3 SECONDS (11.7-14.9)
[2021-06-26 07:06] LABS: Partial Thromboplast Time 29.1 Seconds (24.1-36.2)
[2021-06-26 07:33] LABS: Vitamin D,25 Hydroxy 65.9 ng/mL
[2021-06-26 07:35] LABS: ALB/GLOB Ratio 0.4 RATIO (0.9-2.4); AST(SGOT) 30 U/L (15-37); Alanine Aminotransfer ALT/SGPT 21 U/L (13-56); Albumin, Serum 2.6 g/dL (3.2-5.0); Alkaline Phosphatase 61 U/L (45-117); Anion Gap 9 (5-15); BUN 30 mg/dL (7-18); BUN/Creat Ratio 18.9 RATIO (10-20); Calcium,Total 9.5 mg/dL (8.5-10.1); Chloride 108 mmol/L (98-107); Creatinine, Serum 1.59 mg/dL (0.55-1.02); EST Glomerular Filtration Rate 33 mL/min (>60); Est Glom Filt Rate - Afr Amer 40 mL/min (>60); Estimated Creatinine Clearance 20.23 ml/min; Globulin 5.8 g/dL (2.2-4.2); Glucose 97 mg/dL (74-106); Magnesium 2.1 mg/dL (1.6-2.6); Phosphorus 4.3 mg/dL (2.5-4.9); Potassium 4.3 mmol/L (3.5-5.1); Protein, Total 8.4 g/dL (6.4-8.2); Sodium Level 141 mmol/L (136-145); Thyroid Stim Hormone (TSH) 1.55 uIU/mL (0.358-3.74)
--- NOTE | 2021-06-26 08:13 | PN.HOSP_ITS ---
Subjective Subjective Follow-up on acute right hip fracture/debility: Patient was seen and examined. She denies any pain was lying in bed. She is a 1-2 person assist. She lives in an independent living facility in [place]. Objective Data Objective Data Vital Signs: Vital Signs Temp Pulse Resp BP Pulse Ox 97.7 F L 85 17 142/67 H 95 06/26/21 02:47 06/26/21 02:47 06/26/21 02:47 06/26/21 02:47 06/26/21 02:47 Oxygen Delivery Method Room Air Weight: 73.9 kg Body Mass Index (BMI) 30.7 Intake & Output: Intake and Output for Last 24 Hours 06/24/21 06/25/21 06/26/21 23:59 23:59 23:59 Intake Total 300 / 300 200 / 200 Output Total 250 / 250 150 / 150 Balance 50 / 50 50 / 50 Lab / Micro Data Result Diagrams: 06/26/21 05:15 06/26/21 05:15 Labs: Laboratory Results - last 24 hr 06/25/21 16:56: WBC 3.7 L, RBC 2.61 L, Hgb 8.8 L, Hct 27.4 L, MCV 105.0 H, MCH 33.7 H, MCHC 32.1, RDW Std Deviation 55.8 H, RDW Coeff of Bruno 14.6, Plt Count 80 L, MPV 10.3, Immature Gran % (Auto) 0.800, Neut % (Auto) 63.2, Lymph % (Auto) 22.1, [place] % (Auto) 12.1 H, Eos % (Auto) 1.3, Baso % (Auto) 0.5, Absolute Neuts (auto) 2.3, Absolute Lymphs (auto) 0.82 L, Nucleated RBC % 0, Differential Comment SCANNED 06/25/21 16:56: Sodium 140, Potassium 4.5, Chloride 106, Carbon Dioxide 26.0, Anion Gap 8, BUN 35 H, Creatinine 1.62 H, Estim Creat Clear Calc 19.86, Est GFR (MDRD) Af Amer 39 L, Est GFR (MDRD) Non-Af 32 L, BUN/Creatinine Ratio 21.6 H, Glucose 114 H, Calcium 9.9 06/25/21 21:18: POC Glucose 187 H 06/26/21 05:15: Vitamin D 25-Hydroxy 65.9 06/26/21 05:15: WBC 2.9 L, RBC 2.67 L, Hgb 9.1 L, Hct 28.4 L, MCV 106.4 H, MCH 34.1 H, MCHC 32.0, RDW Std Deviation 55.9 H, RDW Coeff of Bruno 14.5, Plt Count 69 L, MPV 10.9, Immature Gran % (Auto) 0.700, Neut % (Auto) 48.7, Lymph % (Auto) 36.0, [place] % (Auto) 12.2 H, Eos % (Auto) 2.1, Baso % (Auto) 0.3, Absolute Neuts (auto) 1.4 L, Absolute Lymphs (auto) 1.03, Nucleated RBC % 0 06/26/21 05:15: Sodium 141, Potassium 4.3, Chloride 108 H, Carbon Dioxide 24.0, Anion Gap 9, BUN 30 H, Creatinine 1.59 H, Estim Creat Clear Calc 20.23, Est GFR (MDRD) Af Amer 40 L, Est GFR (MDRD) Non-Af 33 L, BUN/Creatinine Ratio 18.9, Glucose 97, Calcium 9.5, Phosphorus 4.3, Magnesium 2.1, Total Bilirubin 0.70, AST 30, ALT 21, Alkaline Phosphatase 61, Total Protein 8.4 H, Albumin 2.6 L, Globulin 5.8 H, Albumin/Globulin Ratio 0.4 L, TSH 1.55 06/26/21 05:15: PT 15.3 H, INR 1.3, APTT 29.1 06/26/21 06:30: POC Glucose 106 Radiography Diagnostic Testing: Radiology Impression Hip/Pelvis X-Ray 06/25/21 14:02 IMPRESSION: No acute fracture or dislocation identified in the right hip. at 1519 Reported and signed by: Adriana Marsh MD Electronically Signed: Adriana Marsh MD at 15:18 EDT Tel , Service support , Lower Extremity CT 06/25/21 16:24 IMPRESSION: Nondisplaced fracture of the right superior pubic ramus/anterior acetabulum. Electronically Signed: Idania Du MD at 19:33 EDT Tel , Service support , Physical Exam Narrative Physical exam: General: Alert, Oriented x3, Cooperative, No apparent distress, Well developed HEENT: Atraumatic, slight bilateral hyperemia of both conjunctiva Oral: Moist Mucosa Neck: Supple Lungs: Clear to auscultation Cardiovascular: HS I+II, regular, no murmurs Abdomen: Bowel Sounds Present, Soft, Non Tender Extremities: No edema Assessment & Plan Assessment/Plan (1) Right hip pain: (2) Inability to ambulate due to right hip: PLAN: 1. Acute right pelvic/acetabulum fracture, History of osteoporosis, on treatment CT of the pelvis shows nondisplaced fracture of the right superior pubic ra mi/anterior acetabulum Continue with pain management, PT/OT 2. Frequent falls, PT/OT consulted, patient may need skilled care 3. Hypertension, controlled for now Off valsartan on account of kidney function Continue hydralazine as needed for now 4. Type 2 DM, BS is controlled Continue on Lantus, premeal lispro, ISS 5. Rest of chronic medical conditions including GERD, hypothyroidism, history of multiple myeloma, not on treatment, breast CA, CKD stage IIIb Charges/Coding Visit Charges Inpatient E&M: 68011 Subs Hosp L2
[2021-06-26] MEDS: Sertraline 50 MG Tablet 150 MG PO (08:41)
[2021-06-26] MEDS: Cholecalciferol (VIT D3) 25 MCG TABLET (1,000 UNITS) 50 MCG PO (08:41)
[2021-06-26] MEDS: Loratadine 10 MG Tablet PO (08:41)
[2021-06-26] MEDS: Multivitamins,Ther W-Minerals Tablet 1 TABLET PO (08:41)
[2021-06-26] MEDS: Calcium Carb/Vitamin D 1 TABLET Tablet PO (08:41)
[2021-06-26] MEDS: Insulin Lispro 100 UNIT/ML INSULN.PEN 12 UNIT SC ×2 (08:47→13:03)
[2021-06-26] MEDS: 0.9% Saline Lock 10 ML Syringe IV ×2 (08:52→21:34)
[2021-06-26 11:41] LABS: Bedside Glucose 172 mg/dL (70-110)
--- NOTE | 2021-06-26 12:42 | CASEMGMT ---
Social Work Note SW reviewed PT/OT. Pt assist of 1-2 and unable to maintain NWB RLE status. SW in to speak with pt. SW introduced self and role at [facility]. SW spoke with pt about discharge plans, recommendation is SNF. Pt states she wants to return back to [facility] and transition to [facility]. SW explained that even if she returns to Assisted Living, she will not get 24/7 care. SW explained that pt will need 1-2 person assist 24/7. Pt states well I have a rollator at home that is easier to use than the walker here, I will be fine to use that at home. SW explained that even with a different device, it is still taking 1-2 people to transfer pt and using a rollator is not a stable device to use to pull pt up out of bed/chair. SW informed pt that there is a SNF in [facility] (TCU) and pending bed availability she may be able to go there so pt doesn't have to go to SNF in the community. RN in room stating pt's son Stone is on his way to [facility]. Pt states that Stone, who is an RN, is her HCPOA. SW informed pt that this worker will come back once pt's son is at [facility] to discuss discharge plans. SW informed pt that this worker will put her on the list for TCU in the event that she is agreeable to SNF. Pt states understanding. SW placed a call to Vanessa with TCU and put pt on TCU list. SW to speak with pt and pt's son Stone once he arrives to [facility] to discuss discharge plans. Plan: NAMRATA Tam ELECTRONICS ASSEMBLER, SPLITTER TENDER
[2021-06-26] MEDS: Insulin Lispro 100 UNIT/ML INSULN.PEN SC (13:02)
--- NOTE | 2021-06-26 14:10 | CASEMGMT ---
Social Work Note Pt's son Stone present at [facility]. SW in to speak with pt and pt's son Stone. DANNY introduced self and role at [facility]. DANNY spoke with pt and Stone about how the recommendation is SNF. Stone agrees that pt will need SNF before returning to [facility]. Stone asked about getting pt to skilled side at [facility]. DANNY explained that [facility] doesn't have a skilled side, only independent living and assisted living and explained difference between the different level of cares (Independent Living, Assisted Living, and SNF.) DANNY explained that at this time, pt is requiring assistance with transfers/bed mobility and pt has to remain NWB to the RLE and pt was unable to maintain that today. DANNY spoke with pt and Stone about TCU. After much discussion, Stone and pt are agreeable to TCU and pt agreeable to this worker starting the insurance process (pre-cert) with pt's insurance [employer]. Stone then asked if it would be beneficial for him to bring in pt's rollator. DANNY informed Stone that this worker is not sure, can check with PT. DANNY placed a call to PT. Pt with rollator would be too unsteady, does not recommend rollator at this time. DANNY updated Stone of this. DANNY placed a call to Vanessa with TCU. Vanessa to submit for pre-cert. Plan: TCU pending pre-cert Sommer Tam AUTOS DISASSEMBLER, BRONZE CHASER
--- NOTE | 2021-06-26 14:46 | CASEMGMT ---
RN CM Assessment Introduced role of RN CM to patient. Patient is alert, oriented and able to participate in RN CM Assessment. Care providers, pharmacy, and demographics verified. Admit Dx: Rt Hip pain, Inability to ambulate. CT-Non displaced Fx Rt superior ramus/anterior acetabulum. Re-Admit: No Barriers/Issues: Patient lives alone at [facility]. Patient drowsy during assessment and denies receiving medication to make her drowsy- states she is always drowsy. Patient uncertain with DC goal and wanting to return home with Assisted living side but not sure if she can afford assisted living, and if they will take her back in current state. Patient voices her plan to scoot around on her rollator pushing with her good leg. Patient is non weight bearing status to RLE. Discussed with group social worker Sommer Nieves as patient plan/wishes may not be a safe DC plan in current condition. Patient son came to bedside to discuss plans with group social worker and patient- refer to her note for further documentation. PCP: Daniel Nair Specialists: Onc-Breana [facility]erred [facility]acy[facility] Benef[facility]: Yes LNOK: Dtr Shobha Payne, Son Stone Payne LW/HPOA: Patient states has completed both, HPOA- Dtr Shobha Sextonon. Living Arrangements: Lives alone at [facility]. No steps to enter apartment. ADL?s: Ambulates with rollator and independent with ADLs. Transportation: Patient drives DME: WW, Rollator, Straight Cane, Toilet rails, SC, Grab bars. HHC: None SNF: None Goal: Patient hesitant about going to SNF. In Network list for SNF and HH provided to patient with star ratings. HH preference for [facility]. PT- Mod/Ind able to pivot to chair with assistance. Recommended additional therapy. DC PLAN: Patient was agreeable to social wili Garcia to start process for TCU placement for now. ROMIE Feliciano
--- NOTE | 2021-06-26 15:13 | NURSING ---
reviewed charting by Alex Bear LPN
[2021-06-26 16:36] LABS: Bedside Glucose 68 mg/dL (70-110)
--- NOTE | 2021-06-26 17:08 | CHAPLAIN ---
Type of Pastoral Visit _x__ Initial Visit ___ Follow-up Visit ___ On-call Visit ___ General Patient Visit ___ Spiritual Assessment ___ Family Conference ___ Bereavement ___ Rapid Response ___ Code Blue ___ Other (describe below) Pastoral Care Referral From _x__ Patient ___ Family ___ Nurse ___ Physician ___ Database Report Writer ___ Curtain Worker ___ Other (describe below) Sacrament/Intervention _x__ Active listening ___ Anointing ___ Religion ___ Bereavement ___ Communion _x__ Felipa exploration ___ _x__ Life review _x__ Prayer ___ Reconciliation ___ Sacrament of Sick _x__ Supportive presence ___ Wedding ___ Other (describe below) Pastoral Comments patient has recently moved to [place] and is admittedly having a difficult time in adjusting to new situation; pt goal is to get back there [place]; pt has islam and family but limited in some ways for support; pt requested a Bible to read and that was given to her.
[2021-06-26 17:35] LABS: Bedside Glucose 79 mg/dL (70-110)
[2021-06-26 21:40] LABS: Bedside Glucose 124 mg/dL (70-110)
[2021-06-27] MEDS: Acetaminophen 500 MG Tablet 1000 MG PO (01:12)
[2021-06-27 02:00] VITALS: BP 157/86; PULSE 80; RESP 16; TEMP 36.6; O2SAT 96
[2021-06-27] MEDS: Levothyroxine 100 MCG Tablet PO (05:34)
[2021-06-27] MEDS: Heparin Injection (Vial) 5,000 UNIT/ML VIAL 5000 UNIT SC ×3 (05:34→21:42)
[2021-06-27 07:48] VITALS: BP 116/66; PULSE 78; RESP 18; TEMP 36.7; O2SAT 95
[2021-06-27] MEDS: Cholecalciferol (VIT D3) 25 MCG TABLET (1,000 UNITS) 50 MCG PO (07:52)
[2021-06-27] MEDS: Calcium Carb/Vitamin D 1 TABLET Tablet PO (07:52)
[2021-06-27] MEDS: Multivitamins,Ther W-Minerals Tablet 1 TABLET PO (07:53)
[2021-06-27 08:06] VITALS: O2SAT 98
[2021-06-27 08:10] LABS: Bedside Glucose 114 mg/dL (70-110)
[2021-06-27] MEDS: Loratadine 10 MG Tablet PO (10:18)
[2021-06-27] MEDS: Sertraline 50 MG Tablet 150 MG PO (10:18)
--- NOTE | 2021-06-27 11:38 | PCM.PN.HOSP ---
Subjective Subjective Follow-up on acute right hip fracture/debility: Patient was seen and examined. Denied any new complaints. She stated that she had exacerbation of left knee pain due to the fact that she was bearing more weight on the left leg. Waiting on discharge planning to [facility] facility Objective Data Objective Data Vital Signs: Vital Signs Temp Pulse Resp BP Pulse Ox 98.1 F 78 18 116/66 98 06/27/21 07:48 06/27/21 07:48 06/27/21 07:48 06/27/21 07:48 06/27/21 08:06 Oxygen Delivery Method Room Air Weight: 73.9 kg Body Mass Index (BMI) 30.7 Intake & Output: Intake and Output for Last 24 Hours 06/25/21 06/26/21 06/27/21 23:59 23:59 23:59 Intake Total 300 / 300 1165 / 1165 Output Total 250 / 250 550 / 800 350 / 350 Balance 50 / 50 615 / 365 -350 / -350 Lab / Micro Data Result Diagrams: 06/26/21 05:15 06/26/21 05:15 Labs: Laboratory Results - last 24 hr 06/26/21 11:34: POC Glucose 172 H 06/26/21 16:30: POC Glucose 68 L 06/26/21 16:58: POC Glucose 79 06/26/21 21:30: POC Glucose 124 H 06/27/21 08:00: POC Glucose 114 H Physical Exam Narrative Physical exam: General: Alert, Oriented x3, Cooperative, No apparent distress, Well developed HEENT: Atraumatic,improved bilateral hyperemia of both conjunctiva Oral: Moist Mucosa Neck: Supple Lungs: Clear to auscultation Cardiovascular: HS I+II, regular, no murmurs Abdomen: Bowel Sounds Present, Soft, Non Tender Extremities: No edema Assessment & Plan Assessment/Plan (1) Right hip pain: (2) Inability to ambulate due to right hip: PLAN: 1. Acute right pelvic/acetabulum fracture, conservatively being managed, nonweightbearing History of osteoporosis, on treatment CT of the pelvis shows nondisplaced fracture of the right superior pubic rami/anterior acetabulum Continue with pain management, PT/OT assessment, nonweightbearing Patient to follow-up with orthopedics in the outpatient 2. Frequent falls, PT/OT consulted, awaiting discharge to [facility] facility 3. Hypertension, controlled for now Will continue to hold off valsartan on account of kidney function Check renal panel tomorrow Continue hydralazine as needed for now 4. Type 2 DM, with episodes of hypoglycemia yesterday Check HbA1c, discontinue Premeal insulin, decrease Lantus to 15 units nightly from 25 units nightly Continue blood glucose checks with insulin sliding scale 5. Rest of chronic medical conditions including GERD, hypothyroidism, history of multiple myeloma, not on treatment, breast CA, CKD stage IIIb Charges/Coding Visit Charges Inpatient E&M: 04328 Subs Hosp L2
[2021-06-27] MEDS: Insulin Lispro 100 UNIT/ML INSULN.PEN SC (12:50)
[2021-06-27 13:00] LABS: Bedside Glucose 212 mg/dL (70-110)
[2021-06-27 14:34] VITALS: BP 136/81; PULSE 96; RESP 16; TEMP 36.3; O2SAT 96
--- NOTE | 2021-06-27 14:40 | CASEMGMT ---
RNCM Note: Palliative screening tool completed per [facility] policy d/t Lace 3. Patient currently does not meet criteria for referral. Dario Evans RNCM
[2021-06-27 14:45] LABS: Hemoglobin A1c 6.7 % (3.8-5.6)
--- NOTE | 2021-06-27 14:51 | CASEMGMT ---
RNCM Note: Palliative screening tool completed per [facility] policy d/t Strata 3. Patient currently does not meet criteria for referral. ROMIE Trevino
--- NOTE | 2021-06-27 15:03 | CASEMGMT ---
Social Work Note SW spoke with Vanessa with TCU, pre-cert is still pending. Plan: TCU pending pre-cert Sommer Tam [employer], USER SUPPORT SPECIALIST
--- NOTE | 2021-06-27 16:07 | CASEMGMT ---
Social Work Note SW received email from Vanessa with TCU stating pt filled Xiidra eye drops and if pt admits to TCU she will either need to bring her own or not use those eye drops while on TCU. DANNY attempted to update pt. Pt soundly sleeping. SW will update pt tomorrow. Plan: TCU pending pre-cert Sommer Tam TUCKPOINTER, MOTORCYCLE POLICE OFFICER
[2021-06-27 17:40] LABS: Bedside Glucose 145 mg/dL (70-110)
[2021-06-27 20:00] VITALS: BP 137/68; PULSE 88; RESP 16; TEMP 36.8; O2SAT 95
[2021-06-27 21:40] LABS: Bedside Glucose 165 mg/dL (70-110)
[2021-06-27] MEDS: 0.9% Saline Lock 10 ML Syringe IV (21:43)
[2021-06-28 02:10] VITALS: BP 143/5; PULSE 79; RESP 16; TEMP 36.4; O2SAT 94
[2021-06-28 05:23] LABS: Absolute Neutrophil Count 1.1 X10^3/uL (2.0-7.7); Basophil# 0.02 X10^3/uL; Basophil% 0.8 % (0-1); Eosinophil# 0.07 X10^3/uL; Eosinophils% 2.8 % (0-5); Hematocrit 29.1 % (37-47); Hemoglobin 9.6 g/dL (12.0-15.0); Lymphocyte % 36.4 % (19-41); Mean Corpuscular Hgb 34.4 pg (27.0-32.0); Mean Corpuscular Volume 104.3 fL (81-99); Mean Platelet Vol. 10.5 fl (6.2-12.0); Monocyte# 0.31 X10^3/uL; Monocyte% 12.6 % (0-10); NRBC Flagged by Analyzer 0 % (0-5); Neutrophil # 1.14 X10^3/uL (2.7-7.7); Neutrophil % 46.2 % (47-70); POSITIVE COUNT YES; Platelet Count 73 K/mm3 (150-450); RBC Distribution Width CV 14.3 % (11.6-14.6); RBC Distribution Width SD 54.4 fl (35.1-43.9); Red Blood Count 2.79 M/mm3 (4.2-5.4); White Blood Count 2.5 K/mm3 (4.4-11.0)
[2021-06-28 05:53] LABS: ALB/GLOB Ratio 0.5 RATIO (0.9-2.4); AST(SGOT) 25 U/L (15-37); Alanine Aminotransfer ALT/SGPT 18 U/L (13-56); Albumin, Serum 2.7 g/dL (3.2-5.0); Alkaline Phosphatase 59 U/L (45-117); Anion Gap 8 (5-15); BUN 32 mg/dL (7-18); BUN/Creat Ratio 19.9 RATIO (10-20); Calcium,Total 9.3 mg/dL (8.5-10.1); Chloride 106 mmol/L (98-107); Creatinine, Serum 1.61 mg/dL (0.55-1.02); EST Glomerular Filtration Rate 33 mL/min (>60); Est Glom Filt Rate - Afr Amer 39 mL/min (>60); Estimated Creatinine Clearance 19.98 ml/min; Globulin 5.8 g/dL (2.2-4.2); Glucose 118 mg/dL (74-106); Potassium 3.8 mmol/L (3.5-5.1); Protein, Total 8.5 g/dL (6.4-8.2); Sodium Level 141 mmol/L (136-145)
[2021-06-28] MEDS: Levothyroxine 100 MCG Tablet PO (06:33)
[2021-06-28] MEDS: Heparin Injection (Vial) 5,000 UNIT/ML VIAL 5000 UNIT SC ×2 (06:33→13:20)
[2021-06-28 06:40] LABS: Bedside Glucose 114 mg/dL (70-110)
[2021-06-28 07:53] VITALS: O2SAT 95
[2021-06-28 08:00] VITALS: BP 138/70; PULSE 83; RESP 16; TEMP 36.7; O2SAT 94
[2021-06-28] MEDS: Sertraline 50 MG Tablet 150 MG PO (08:03)
[2021-06-28] MEDS: Cholecalciferol (VIT D3) 25 MCG TABLET (1,000 UNITS) 50 MCG PO (08:03)
[2021-06-28] MEDS: Multivitamins,Ther W-Minerals Tablet 1 TABLET PO (08:03)
[2021-06-28] MEDS: Loratadine 10 MG Tablet PO (08:03)
[2021-06-28] MEDS: Calcium Carb/Vitamin D 1 TABLET Tablet PO (08:03)
--- NOTE | 2021-06-28 08:40 | CASEMGMT ---
Addendum entered by Sommer Tam 06/28/21 10:34: Patient was provided a list of SNF providers including quality and resource use data and consistent with the patient?s preferred geographic region, medical needs, and insurance network. Pt's preferred provider is [facility]. Addendum entered by Sommer Tam 06/28/21 10:30: Physician updated on approval for TCU. DANNY in to speak with pt. SW updated pt that she has been approved for TCU, will discharge there today. SW asked pt about Xiidra eye drops. Pt states she is not taking those eye drops anymore. DANNY placed a call to Vanessa with TCU and updated her pt to discharge to TCU today and pt is stating she no longer takes the Xiidra eye drops. Original Note: Social Work Note SW received message from Vanessa with [facility] stating pt has been approved, can discharge to TCU today. DANNY will update pt and physician. Plan: TCU today Sommer Tam PROJECT GEOLOGIST, SERVICE ORDER CLERK
--- NOTE | 2021-06-28 11:03 | PCM.TXEXTCAR ---
Diet 06/26/21 00:19 Diet: Consistent Carb - Calorie Controlled Is pt able to select menu?: No How many daily calories?: 1800 calorie Routine Orders/Code Status Routine Lab Work: CBC (within 3 days) and BMP (within 3 days) Code Status: Full Code Therapies Weight Bearing: Non weight bearing Problem/Diagnosis (1) Right hip pain: Status: Acute (2) Inability to ambulate due to right hip: Status: Acute Allergies/Procedures Done in Hospital Allergies lenalidomide [From Revlimid] Allergy (Verified 06/25/21 13:46) Rash lisinopril Allergy (Verified 06/25/21 13:46) Unknown Procedures: None Type of Care/Length of Stay Estimated LOS: Convalescent Care Less Than 30 days Type of Care Needed: Skilled Rehab Potential: Good Prognosis: Good Additional Orders/Day of Discharge Day of Discharge: 06/28/21 Discharge Plan Admission Admit Date/Time: 06/25/21 16:51 Primary Reason for Your Visit: Acute pelvic fracture Attending Provider: Yasmin Christiansen Primary Care Provider: Daniel Nair Discharge Orders/Prescriptions Prescriptions: New sennosides-docusate sodium [Stool Softener-Stimulant Laxat] 8.6-50 mg Tablet 2 tab PO BID PRN PRN (Reason: Constipation) Qty: 0 RF: 0 acetaminophen 500 mg Tablet 1,000 mg PO Q8H PRN PRN (Reason: Pain Score 1-10/Temp > 100.7 F) Qty: 0 RF: 0 heparin (porcine) 5,000 unit/mL Solution 5,000 unit subcut Q8 Qty: 0 RF: 0 Lantus Solostar U-100 Insulin 100 unit/mL (3 mL) Insulin Pen 15 units subcut QHS Qty: 0 RF: 0 Continued omeprazole 20 mg tablet,delayed release (DR/EC) 20 mg PO DAILY PRN (Reason: gerd) RF: 0 cetirizine 10 MG tablet 10 mg PO DAILY RF: 0 sertraline 100 MG tablet 150 mg PO DAILY RF: 0 levothyroxine 25 MCG tablet 100 mcg PO DAILY RF: 0 multivitamin with folic acid 1 TABLET tablet 1 tab PO DAILY RF: 0 calcium carbonate-vitamin D3 1 EACH tablet,chewable 1 tab PO DAILY RF: 0 cholecalciferol (vitamin D3) 50 mcg (2,000 unit) tablet 2,000 unit PO DAILY RF: 0 Restasis 0.05 % Dropperette 1 drp EACH EYE Q12H RF: 0 Discontinued valsartan 160 MG tablet 80 mg PO DAILY RF: 0 Humalog U-100 Insulin 100 UNIT/ML cartridge 12 unit SQ TID RF: 0 potassium chloride 20 mEq tablet extended release 20 meq PO DAILY RF: 0 Lantus Solostar U-100 Insulin 100 unit/mL (3 mL) insulin pen 25 unit SUBCUT QHS RF: 0 Referrals / Follow Up: Jefferson Wilkinson DO [STAFF PHYSICIAN] - Within 2 Weeks Daniel Nair MD [Primary Care Provider] - Within 2 Weeks Disposition Disposition (needs filled in before D/C Order can be placed): Residential Facility
--- NOTE | 2021-06-28 11:11 | DS.PCM_ITS ---
Providers Date of Admission: 06/25/21 Date of Discharge: 06/28/21 Primary Care Physician: Dr. Daniel Nair MD Reason For Visit: R HIPPAIN/INABILITY TO AMBULATE Diagnosis Discharge Diagnosis (1) Right hip pain: Status: Acute Code(s): M25.551 - Pain in right hip (2) Inability to ambulate due to right hip: Status: Acute Code(s): R26.2 - Difficulty in walking, not elsewhere classified Medications at Discharge Home Medications cetirizine 10 mg PO DAILY 10/07/13 levothyroxine 100 mcg PO DAILY 10/07/13 multivitamin with folic acid 1 tab PO DAILY 10/07/13 sertraline 150 mg PO DAILY 10/07/13 calcium carbonate-vitamin D3 1 tab PO DAILY 12/25/16 omeprazole 20 mg tablet,delayed release 20 mg PO DAILY PRN 09/03/19 cholecalciferol (vitamin D3) 2,000 unit PO DAILY 06/01/21 Restasis 1 drp EACH EYE Q12H 06/26/21 acetaminophen 1,000 mg PO Q8H PRN PRN #0 tab 06/28/21 heparin (porcine) 5,000 unit SUBCUT Q8 06/28/21 insulin glargine [Lantus Solostar U-100 Insulin] 15 units SUBCUT QHS 06/28/21 sennosides-docusate sodium [Stool Softener-Stimulant Laxat] 2 tab PO BID PRN PRN #0 tab 06/28/21 Hospital Course Operations None Procedures None Summary of Care Provided Minutes Spent on Discharge: 45 Hospital Course: 81-year-old female who presented with persistent right hip pain. Patient lives in an independent living facility and fell about 2 weeks ago. She stated that she tripped on her footstool. She had no pain in her right hip for about a week. Subsequently she started having worsening right hip pain. X-ray of the pelvis initially was unremarkable. CT of the pelvis showed right superior pubic rami/anterior acetabulum fracture. She was admitted to the hospital for pain control. Her renal function was slightly elevated but not acute kidney injury. Patient was held off her valsartan. Blood pressure profile continue to be controlled. She had episodes of hypoglycemia necessitating changes to her insulin regimen. Patient was seen by PT and OT and skilled for discharge to intermediate facility. She will follow-up with orthopedics in 2 weeks. Physical Exam Narrative Physical exam: General: Alert, Oriented x3, Cooperative, No apparent distress, Well developed HEENT: Atraumatic,improved bilateral hyperemia of both conjunctiva Oral: Moist Mucosa Neck: Supple Lungs: Clear to auscultation Cardiovascular: HS I+II, regular, no murmurs Abdomen: Bowel Sounds Present, Soft, Non Tender Extremities: No edema Weight / BMI Weight Weight: 73.9 kg Body Mass Index (BMI) 30.7 ABG / Lab / Microbiology Data Result Diagrams: 06/28/21 04:58 06/28/21 04:58 Laboratory: Laboratory Results - last 24 hr 06/26/21 05:15: Hemoglobin A1c 6.7 H 06/27/21 12:50: POC Glucose 212 H 06/27/21 17:33: POC Glucose 145 H 06/27/21 21:38: POC Glucose 165 H 06/28/21 04:58: WBC 2.5 L, RBC 2.79 L, Hgb 9.6 L, Hct 29.1 L, MCV 104.3 H, MCH 34.4 H, MCHC 33.0, RDW Std Deviation 54.4 H, RDW Coeff of Bruno 14.3, Plt Count 73 L, MPV 10.5, Immature Gran % (Auto) 1.200 H, Neut % (Auto) 46.2 L, Lymph % (Auto) 36.4, Payette % (Auto) 12.6 H, Eos % (Auto) 2.8, Baso % (Auto) 0.8, Absolute Neuts (auto) 1.1 L, Absolute Lymphs (auto) 0.90, Nucleated RBC % 0 06/28/21 04:58: Sodium 141, Potassium 3.8, Chloride 106, Carbon Dioxide 27.0, Anion Gap 8, BUN 32 H, Creatinine 1.61 H, Estim Creat Clear Calc 19.98, Est GFR (MDRD) Af Amer 39 L, Est GFR (MDRD) Non-Af 33 L, BUN/Creatinine Ratio 19.9, Glucose 118 H, Calcium 9.3, Total Bilirubin 0.50, AST 25, ALT 18, Alkaline Phosphatase 59, Total Protein 8.5 H, Albumin 2.7 L, Globulin 5.8 H, Albumin/Globulin Ratio 0.5 L 06/28/21 06:32: POC Glucose 114 H Microbiology: Microbiology 06/28/21 10:00 Nasal Secretion SARS-CoV-2 Antigen (Rapid) - Final D/C Instructions Discharge Diet: 2000 Calorie Control Diet and 2000 mg Sodium Diet Meaningful Use Info Meaningful Use Diagnoses (Choose all that apply): None applicable Discharge Plan Admission Admit Date/Time: 06/25/21 16:51 Primary Reason for Your Visit: Acute pelvic fracture Attending Provider: Yasmin Christiansen Primary Care Provider: Daniel Nair Discharge Orders/Prescriptions Prescriptions: New sennosides-docusate sodium [Stool Softener-Stimulant Laxat] 8.6-50 mg Tablet 2 tab PO BID PRN PRN (Reason: Constipation) Qty: 0 RF: 0 acetaminophen 500 mg Tablet 1,000 mg PO Q8H PRN PRN (Reason: Pain Score 1-10/Temp > 100.7 F) Qty: 0 RF: 0 Continued omeprazole 20 mg tablet,delayed release (DR/EC) 20 mg PO DAILY PRN (Reason: gerd) RF: 0 cetirizine 10 MG tablet 10 mg PO DAILY RF: 0 sertraline 100 MG tablet 150 mg PO DAILY RF: 0 levothyroxine 25 MCG tablet 100 mcg PO DAILY RF: 0 multivitamin with folic acid 1 TABLET tablet 1 tab PO DAILY RF: 0 calcium carbonate-vitamin D3 1 EACH tablet,chewable 1 tab PO DAILY RF: 0 cholecalciferol (vitamin D3) 50 mcg (2,000 unit) tablet 2,000 unit PO DAILY RF: 0 Restasis 0.05 % Dropperette 1 drp EACH EYE Q12H RF: 0 Discontinued valsartan 160 MG tablet 80 mg PO DAILY RF: 0 Humalog U-100 Insulin 100 UNIT/ML cartridge 12 unit SQ TID RF: 0 potassium chloride 20 mEq tablet extended release 20 meq PO DAILY RF: 0 Lantus Solostar U-100 Insulin 100 unit/mL (3 mL) insulin pen 25 unit SUBCUT QHS RF: 0 No Action heparin (porcine) 5,000 unit/mL solution 5,000 unit subcut Q8 RF: 0 Lantus Solostar U-100 Insulin 100 unit/mL (3 mL) insulin pen 15 units subcut QHS RF: 0 Referrals / Follow Up: Jefferson Wilkinson DO [STAFF PHYSICIAN] - Within 2 Weeks Daniel Nair MD [Primary Care Provider] - Within 2 Weeks Disposition Disposition (needs filled in before D/C Order can be placed): Intermediate Facility Charges/Coding Visit Charges Inpatient E&M: 28519 Disch Hosp
[2021-06-28] MEDS: Insulin Lispro 100 UNIT/ML INSULN.PEN SC (11:25)
[2021-06-28 11:36] LABS: Bedside Glucose 211 mg/dL (70-110)
[2021-06-28 13:25] VITALS: BP 142/67; PULSE 88; RESP 16; TEMP 36.2; O2SAT 100
--- NOTE | 2021-06-28 14:09 | NURSING ---
Report called to DAVID Garcia in TCU
== END 2021-06-28 14:25 | disposition skilled nursing facility (03) | DRG 543 ==
LOC: ED 16:35 → MS3 17:04
PROVIDERS: Admitting Provider Internal Medicine; Emergency Provider Emergency Medicine; PCP Family Medicine; Visit Provider Internal Medicine
DX: M80.051A Age-related osteoporosis with current pathological fracture, right femur, initial encounter for fracture (principal); C90.00 Multiple myeloma not having achieved remission; D61.818 Other pancytopenia; E11.22 Type 2 diabetes mellitus with diabetic chronic kidney disease; E11.649 Type 2 diabetes mellitus with hypoglycemia without coma; Z79.4 Long term (current) use of insulin; N18.32 Chronic kidney disease, stage 3b; I12.9 Hypertensive chronic kidney disease with stage 1 through stage 4 chronic kidney disease, or unspecified chronic kidney disease; K21.9 Gastro-esophageal reflux disease without esophagitis; F32.A Depression, unspecified; E66.9 Obesity, unspecified; Z68.31 Body mass index [BMI] 31.0-31.9, adult; Z79.899 Other long term (current) drug therapy
CPT/HCPCS: 36415; 73502; 73700; 80048; 80053; 82306; 82962; 83036; 83735; 84100; 84443; 85025; 85610; 85730; 87426; 96360; 96361; 96372; 97110; 97116; 97162; 97166; 97530; 97533; 99218; 99251; 99285; J7030; A4216; G0378; G0463

== ENCOUNTER 2021-06-28 14:30 | Inpatient (IN) | payer MEDICARE, SELFPAY ==
[2021-06-28 14:42] VITALS: BP 141/60; PULSE 83; RESP 18; TEMP 36.6; O2SAT 98
[2021-06-28 14:48] VITALS: BMI 30.8
[2021-06-28 16:50] LABS: Bedside Glucose 149 mg/dL (70-110)
--- NOTE | 2021-06-28 19:03 | PCM.HP.STD ---
HPI - General General Date of Admission: 06/28/21 HPI Narrative 06/25/2021 MAGDI IBRAHIM, is a 81 Female who presents to [facility] Emergency Department with fall. Fall 2 weeks prior, lives at [facility]. Fell to right elbow, right hip, right side. Right hip pain worse, difficulty walking, using walker. Concern with occult right hip fracture, unable to care for self. 06/25/[address] right hip, then MRI right hip, PT/OT, pain control for right hip pain. PT/OT for falls. Hold Valsartan for worsening kidney function. 06/26/2021 CT showed nondisplaced fracture right superior pubic ramus/anterior acetabulum. Dr. Wilkinson recommended non-surgical management. 1-2 assist, pain control. PT/OT, may need intermediate facility. 06/27/2021 Left knee pain due to weight bearing on left knee. Valsartan held for chronic kidney disease stage 3b. Hydralazine as needed for elevated blood pressure. PT/OT for jail facility. 06/28/2021 Admit to TCU with debility, here for rehabilitation, strengthening, prior to discharge [facility]. [facility] Medical History (Updated 06/28/21 @ 19:[address] Jose Horner MD) Acute renal failure Basal cell carcinoma (BCC) of skin of face Breast cancer Cataracts, bilateral Chronic idiopathic thrombocytopenia Dehydration Depression Diabetes mellitus type 2 in obese Diastolic dysfunction Gastroenteritis Gastroesophageal reflux disease Hyperlipidemia Hypertension Hypokalemia Hypophosphatemia Hypothyroidism (acquired) Leukopenia Metabolic acidosis Multiple myeloma Obstructive sleep apnea Osteoporosis Home Medications cetirizine 10 mg PO DAILY 10/07/13 [History Last Taken Unknown] levothyroxine 100 mcg PO DAILY 10/07/13 [History Last Taken 01/30/19 06:15] multivitamin with folic acid 1 tab PO DAILY 10/07/13 [History Last Taken Unknown] sertraline 150 mg PO DAILY 10/07/13 [History Last Taken Unknown] calcium carbonate-vitamin D3 1 tab PO DAILY 12/25/16 [History Last Taken Unknown] omeprazole 20 mg tablet,delayed release 20 mg PO DAILY PRN 09/03/19 [History Last Taken Unknown] cholecalciferol (vitamin D3) 2,000 unit PO DAILY 06/01/21 [History Last Taken Unknown] Restasis 1 drp EACH EYE Q12H 06/26/21 [History Last Taken Unknown] acetaminophen 1,000 mg PO Q8H PRN PRN #0 tab 06/28/21 [Rx Last Taken Unknown] heparin (porcine) 5,000 unit SUBCUT Q8 06/28/21 [History Last Taken Unknown] insulin glargine [Lantus Solostar U-100 Insulin] 15 units SUBCUT QHS 06/28/21 [History Last Taken Unknown] sennosides-docusate sodium [Stool Softener-Stimulant Laxat] 2 tab PO BID PRN PRN #0 tab 06/28/21 [Rx Last Taken Unknown] Allergy/AdvReac Type Severity Reaction Status Date / Time lenalidomide [From Revlimid] Allergy Rash Verified 06/25/21 13:46 lisinopril Allergy Unknown Verified 06/25/21 13:46 Family History Mother CVA (cerebral vascular accident) Surgical History History of thyroidectomy Hx of cholecystectomy Hx of tonsillectomy Social History (Updated 06/28/21 @ 19:[address] Jose Horner MD) household members: none housing: assisted living facility Smoking Status: Never smoker second hand exposure: No alcohol intake: never substance use type: does not use caffeine: Yes what type of physical activity do you participate in: none frequency: does not exercise seatbelt use: always ROS Constitutional Constitutional: Denies chills, fever(s) or weight gain ENT HEENT: Denies headache(s), nasal congestion or nasal discharge Cardiovascular Cardiovascular: Denies chest pain or palpitations Respiratory/Chest Respiratory/Chest: Denies cough, excessive phlegm production or shortness of breath with exertion Gastrointestinal Gastrointestinal: Denies abdominal pain, nausea or vomiting Genitourinary Genitourinary: Denies dysuria Musculoskeletal Musculoskeletal: Denies joint pain or joint swelling Integumentary Integumentary: Denies rash or wounds Neurologic Neurologic: Denies focal weakness, numbness or tingling Psychiatric Psychiatric: Reports auditory hallucinations; Denies anxiety, depression, homicidal ideation or suicidal ideation Vital Signs Vital Signs Vital Signs: 06/28/21 14:42 06/28/21 15:03 Temperature 97.8 F Temperature Source Temporal Pulse Rate 83 Pulse Rhythm Regular Respiratory Rate 18 Respiratory Effort Normal Respiratory Depth Normal Respiratory Pattern Normal Blood Pressure 141/60 H Blood Pressure Mean 87 Blood Pressure Source Monitor Blood Pressure Position Semi-Fowlers Blood Pressure Location Right Arm Pulse Ox 98 Oxygen Delivery Method Room Air Room Air Weight Weight: 73.936 kg Body Mass Index (BMI) 30.8 Physical Exam Const alert and oriented x3 General Appearance: cooperative HEENT normocephalic Eyes PERRL and EOMs intact bilaterally Neck supple, no JVD and no carotid bruits Resp normal respiratory effort, normal air movement and clear to auscultation bilaterally Cardio regular rate and regular rhythm GI normal to inspection, nondistended, normoactive bowel sounds, non-tender and non-distended Extremity normal capillary refill General Extremity: Negative for edema Skin no rashes or lesions noted General Skin Exam: no breakdown Psych affect normal Appearance: appropriate Results Lab / Micro Data Labs: Laboratory Results - last 24 hr 06/28/21 16:32: POC Glucose 149 H Assessment & Plan Assessment/Plan (1) Debility: (2) Right hip pain: (3) Acute kidney injury: (4) Pelvis fracture: (5) Allergic rhinitis: (6) Hypothyroidism: (7) Depression: (8) Hypertension: (9) Diabetes mellitus: (10) Gastroesophageal reflux disease: (11) Vitamin D deficiency: (12) Hypokalemia: (13) Chronic kidney disease, stage 3b: PLAN: 81 year old female with below past medical history hospitalized for fall, pelvic fracture, complicated by acute kidney injury, admitted to TCU with debility, here for rehabilitation, strengthening, prior to discharge to [facility]. Debility - PT/OT. Pain - Tylenol 1000mg q6h prn pain (1-3), Tramadol 50mg Q6h prn pain (4-5), Oxycodone 2.5mg Q4h prn pain (6-10). Bowel - Miralax 17gm daily, Senna/colace 2 tablets twice daily, Dulcolax 10mg daily prn. Adult immunization - Administer prevnar 13, pneumovax 23, fluzone, covid19 vaccine as appropriate DVT prophylaxis - Hold, anemia. Calcium deficiency - Calcium D 1 tablet daily. Vitamin D deficiency - D3 50mcg daily. Dry eyes - Artificial Tears 1gtt ou Q2H prn. Diabetes Mellitus II - Lantus 15 units qhs. Hypothyroidism - Levothyroxine 100mcg daily. Allergic rhinitis - Loratadine 10mg daily. Skin irritation - Calmoseptine topical twice daily. Nutrition - MVI daily. GERD - Pantoprazole 20mg daily. Depression - Sertraline 150mg daily, stable chronic jail use, GDR not recommended.
[2021-06-28] MEDS: Menthol/Lanolin/Calamine/Znox 113 GM Tube 1 APPLIC TOPICAL (21:03)
[2021-06-28 21:36] LABS: Bedside Glucose 200 mg/dL (70-110)
[2021-06-29] MEDS: Menthol/Lanolin/Calamine/Znox 113 GM Tube 1 APPLIC TOPICAL ×2 (05:01→16:07)
[2021-06-29] MEDS: Sertraline 100 MG Tablet 150 MG PO (05:03)
[2021-06-29] MEDS: Loratadine 10 MG Tablet PO (05:04)
[2021-06-29] MEDS: Levothyroxine 100 MCG Tablet PO (05:04)
[2021-06-29] MEDS: Pantoprazole Sodium 20 MG Tablet PO (05:04)
[2021-06-29 06:26] LABS: Bedside Glucose 96 mg/dL (70-110)
[2021-06-29 07:41] LABS: Absolute Lymphocyte Count 0.74 X10^3/uL (0.83-4.51); Absolute Neutrophil Count 1.3 X10^3/uL (2.0-7.7); Basophil# 0.02 X10^3/uL; Basophil% 0.8 % (0-1); Hematocrit 27.9 % (37-47); Hemoglobin 9.3 g/dL (12.0-15.0); Lymphocyte # 0.74 X10^3/ul (0.83-4.51); Lymphocyte % 29.7 % (19-41); Mean Corp Hgb Conc 33.3 g/dL (32-36); Mean Corpuscular Hgb 34.7 pg (27.0-32.0); Mean Corpuscular Volume 104.1 fL (81-99); Mean Platelet Vol. 10.5 fl (6.2-12.0); Monocyte# 0.34 X10^3/uL; Monocyte% 13.7 % (0-10); NRBC Flagged by Analyzer 0 % (0-5); Neutrophil # 1.26 X10^3/uL (2.7-7.7); Neutrophil % 50.6 % (47-70); POSITIVE COUNT YES; Platelet Count 73 K/mm3 (150-450); RBC Distribution Width CV 14.5 % (11.6-14.6); RBC Distribution Width SD 54.5 fl (35.1-43.9); Red Blood Count 2.68 M/mm3 (4.2-5.4); White Blood Count 2.5 K/mm3 (4.4-11.0)
[2021-06-29 08:01] LABS: Anion Gap 7 (5-15); BUN 30 mg/dL (7-18); BUN/Creat Ratio 19.4 RATIO (10-20); Calcium,Total 9.5 mg/dL (8.5-10.1); Chloride 106 mmol/L (98-107); Creatinine, Serum 1.55 mg/dL (0.55-1.02); EST Glomerular Filtration Rate 34 mL/min (>60); Est Glom Filt Rate - Afr Amer 41 mL/min (>60); Estimated Creatinine Clearance 20.75 ml/min; Glucose 106 mg/dL (74-106); Potassium 3.7 mmol/L (3.5-5.1); Sodium Level 140 mmol/L (136-145)
[2021-06-29 08:51] VITALS: O2SAT 94
[2021-06-29] MEDS: Calcium Carb/Vitamin D 1 TABLET Tablet PO (08:51)
[2021-06-29] MEDS: Multivitamins,Ther W-Minerals Tablet 1 TABLET PO (08:51)
[2021-06-29] MEDS: Cholecalciferol (VIT D3) 25 MCG TABLET (1,000 UNITS) 50 MCG PO (08:51)
[2021-06-29] MEDS: Iron Polysaccharide Complex 150 MG CAPSULE PO (08:51)
--- NOTE | 2021-06-29 09:16 | NURSING ---
JUAN FAXED DATES THAT PT RECEIVED MODERNA VACCINE 11/11/20 & 12/09/20. PLACED IN FRONT OF PTS CHART
[2021-06-29] MEDS: Tuberculin,Purif.prot.deriv. 50 TU/ML Vial 0.1 ML ID (10:35)
[2021-06-29] MEDS: 0.9% Saline Lock 10 ML Syringe IV (11:23)
--- NOTE | 2021-06-29 11:26 | NURSING ---
Deaccessed pt RT chest port per her request. flushed with saline and then heparin. 2x2 applied secured with tape.
[2021-06-29 15:17] VITALS: BP 147/70; PULSE 80; RESP 14; TEMP 36.8; O2SAT 94
--- NOTE | 2021-06-29 17:02 | CHAPLAIN ---
Type of Pastoral Visit _x__ Initial Visit ___ Follow-up Visit ___ On-call Visit ___ General Patient Visit ___ Spiritual Assessment ___ Family Conference ___ Bereavement ___ Rapid Response ___ Code Blue ___ Other (describe below) Pastoral Care Referral From _x__ Patient ___ Family ___ Nurse ___ Physician ___ Environmental Education Specialist ___ Subcontract Manager ___ Other (describe below) Sacrament/Intervention _x__ Active listening ___ Anointing ___ Buddhist ___ Bereavement ___ Communion _x__ Felipa exploration ___ _x__ Life review _x__ Prayer ___ Reconciliation ___ Sacrament of Sick _x__ Supportive presence ___ Wedding ___ Other (describe below) Pastoral Comments this was a follow up visit to patient seen earlier this week in [facility]; pt is outspoken about knowing I can go home and take care of myself; pt has had much change in her life in last few weeks including auction of her possessions this week; listened to her heart concerns about these things; pt has not been able to sleep the last two nights and she is concerned for herself; pt is wanting prayer and spiritual care support
[2021-06-29 21:54] VITALS: PULSE 86; RESP 12; O2SAT 95
[2021-06-29 22:20] LABS: Bedside Glucose 193 mg/dL (70-110)
[2021-06-29] MEDS: MELATONIN 10 MG TABLET PO (22:24)
[2021-06-30] MEDS: Polyethylene Glycol 3350 17 GM PACKET PO (05:16)
[2021-06-30] MEDS: Menthol/Lanolin/Calamine/Znox 113 GM Tube 1 APPLIC TOPICAL ×2 (05:17→16:48)
[2021-06-30] MEDS: Senna/Docusate Sodium 1 Tablet 2 TABLET PO (05:17)
[2021-06-30] MEDS: Levothyroxine 100 MCG Tablet PO (05:17)
[2021-06-30] MEDS: Loratadine 10 MG Tablet PO (05:18)
[2021-06-30] MEDS: Sertraline 100 MG Tablet 150 MG PO (05:18)
[2021-06-30] MEDS: Pantoprazole Sodium 20 MG Tablet PO (05:18)
[2021-06-30 06:20] LABS: Bedside Glucose 144 mg/dL (70-110)
[2021-06-30] MEDS: Cholecalciferol (VIT D3) 25 MCG TABLET (1,000 UNITS) 50 MCG PO (08:35)
[2021-06-30] MEDS: Calcium Carb/Vitamin D 1 TABLET Tablet PO (08:35)
[2021-06-30] MEDS: Multivitamins,Ther W-Minerals Tablet 1 TABLET PO (08:36)
[2021-06-30] MEDS: Iron Polysaccharide Complex 150 MG CAPSULE PO (08:36)
--- NOTE | 2021-06-30 10:44 | CASEMGMT ---
Addendum entered by Kim Campuzano 06/30/21 11:37: MOLST form completed, communication to , placed in chart. Original Note: Social Work Met with patient for initial assessment. Discussed and explained code status'. Pt wishes to be DNR-CCA, no intubation. Nursing notified. Explained [employer] insurance with [employer] 07/03, and continued stay is not guaranteed. The goal is for pt to return to [facility], but may need more assistance. Pt does not want to transition to [place]. Will speak with [place] closer to [place] with levels of assistance needed. 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 Will continue to follow. Kim Campuzano, GABRIEL CRUZW
[2021-06-30 13:08] VITALS: BP 101/61; PULSE 78; RESP 16; TEMP 36.3; O2SAT 98
--- NOTE | 2021-06-30 15:08 | PCM.PN.RX ---
Progress Note - Pharmacy Subjective: TCU Admission Objective: Allergies lenalidomide [From Revlimid] Allergy (Verified 06/25/21 13:46) Rash lisinopril Allergy (Verified 06/25/21 13:46) Unknown Current Medications Generic Name Dose Route Start Last Admin Trade Name Freq PRN Reason Stop Dose Admin Acetaminophen 1,000 mg 06/28/21 19:23 Acetaminophen 500 Mg Tablet PO Q6H PRN PRN Pain Score 1-3 Artificial Tears 0 drp 06/28/21 15:31 Dextran 70/He-Cell 15ml Bottle EACH EYE Q2H PRN Q2H PRN DRY EYES Bisacodyl 10 mg 06/28/21 19:21 Bisacodyl 5 Mg Tablet PO DAILY PRN Constipation Calamine/Phenol 1 applic 06/28/21 18:00 06/30/21 05:17 Menthol/Lanolin/Calamine/Znox 113 Gm Tube TOPICAL 1 applic BID BARRY Administration Protocol Calcium/Vitamin D 1 tablet 06/29/21 08:00 06/30/21 08:35 Calcium Carb/Vitamin D 1 Tablet Tablet PO 1 tablet 0800 BARRY Administration Cholecalciferol 50 mcg 06/29/21 08:00 06/30/21 08:35 Cholecalciferol (Vit D3) 25 Mcg Tablet (1,000 Units) PO 50 mcg 0800 BARRY Administration Heparin Sodium (Beef Lung) 50 units 06/28/21 14:56 06/29/21 11:23 Heparin Pf Lock 10 Units/Ml 50 Units/5 Ml Syringe IV 50 units UD PRN Administration R Port Heparin Flush Insulin Glargine 15 units 06/28/21 22:00 06/29/21 22:24 Insulin Glargine 100 Units/Ml Pen SC 15 u QHS BARRY Administration Levothyroxine Sodium 100 mcg 06/29/21 06:00 06/30/21 05:17 Levothyroxine 100 Mcg Tablet PO 100 mcg DAILY BARRY Administration Loratadine 10 mg 06/29/21 06:00 06/30/21 05:18 Loratadine 10 Mg Tablet PO 10 mg DAILY BARRY Administration Melatonin 10 mg 06/29/21 07:49 06/29/21 22:24 Melatonin 10 Mg Tablet PO 10 mg QHS PRN Administration INSOMNIA Multivitamins/Minerals 1 tablet 06/29/21 08:00 06/30/21 08:36 Multivitamins,Ther W-Minerals Tablet PO 1 tablet BREAKFAST BARRY Administration Oxycodone HCl 2.5 mg 06/28/21 19:21 Oxycodone 5 Mg Tablet PO Q4H PRN PRN Pain Score 6-10 Pantoprazole Sodium 20 mg 06/29/21 06:00 06/30/21 05:18 Pantoprazole Sodium 20 Mg Tablet PO 20 mg DAILY BARRY Administration Polyethylene Glycol 17 gm 06/29/21 06:00 06/30/21 05:16 Polyethylene Glycol 3350 17 Gm Packet PO 17 gm DAILY BARRY Administration Polysaccharide Iron Complex 150 mg 06/29/21 08:00 06/30/21 08:36 Iron Polysaccharide Complex 150 Mg Capsule PO 150 mg DAILYCM BARRY Administration Senna/Docusate Sodium 2 tablet 06/28/21 19:30 06/30/21 05:17 Senna/Docusate Sodium 1 Tablet PO 2 tablet BID BARRY Administration Sertraline HCl 150 mg 06/29/21 06:00 06/30/21 05:18 Sertraline 100 Mg Tablet PO 150 mg DAILY BARRY Administration Sodium Chloride 10 - 40 ml 06/28/21 14:56 06/29/21 11:23 0.9% Saline Lock 10 Ml Syringe IV 10 ml UD PRN Administration R Port Saline Flush Sodium Chloride 10 - 40 ml 06/28/21 14:56 0.9 % Nacl (Sterile) Posiflush 10 Ml IV UD PRN Port access or dressing change Tramadol HCl 50 mg 06/28/21 19:21 Tramadol 50 Mg Tablet PO Q6H PRN PRN Pain Score 4-5 Tuberculin PPD 0.1 ml 07/06/21 10:00 Tuberculin,Purif.Prot.Deriv. 50 Tu/Ml Vial ID 07/06/21 10:01 X1 ONE Problem List (Last Reviewed 06/28/21 @ 19:[address] Jose Horner MD) Chronic kidney disease, stage 3b (Acute) Hypokalemia (Acute) Vitamin D deficiency (Acute) Gastroesophageal reflux disease (Acute) Diabetes mellitus (Acute) Hypertension (Chronic) Depression (Acute) Hypothyroidism (Acute) Allergic rhinitis (Acute) Pelvis fracture (Acute) Acute kidney injury (Acute) Debility (Acute) Right hip pain (Acute) Vital Signs Temp Pulse Resp BP Pulse Ox 97.3 F L 78 16 101/61 98 06/30/21 13:08 06/30/21 13:08 06/30/21 13:08 06/30/21 13:08 06/30/21 13:08 Oxygen Delivery Method Room Air Weight: 73.936 kg Body Mass Index (BMI) 30.8 Sodium 140 mmol/L (136-145) 06/29/21 07:28 Potassium 3.7 mmol/L (3.5-5.1) 06/29/21 07:28 Chloride 106 mmol/L (98-107) 06/29/21 07:28 Carbon Dioxide 27.0 mmol/L (21.0-32.0) 06/29/21 07:28 Anion Gap 7 (5-15) 06/29/21 07:28 BUN 30 mg/dL (7-18) H 06/29/21 07:28 Creatinine 1.55 mg/dL (0.55-1.02) H 06/29/21 07:28 Est GFR (MDRD) Af Amer 41 mL/min (>60) L 06/29/21 07:28 Est GFR (MDRD) Non-Af 34 mL/min (>60) L 06/29/21 07:28 BUN/Creatinine Ratio 19.4 RATIO (10-20) 06/29/21 07:28 Glucose 106 mg/dL (74-106) 06/29/21 07:28 Assessment/Plan: 1. Pain: acetaminophen 1000mg PO Q6H PRN pain 1-3/10, tramadol 50mg PO Q6H PNR pain 4-5/10 and oxycodone 2.5mg PO Q4H PRN pain 6-10/10. Please continue to monitor for increased pain and PRN usage. 2. Diabetes Mellitus II: insulin glargine 15units SC QHS. Please continue to monitor for S/S of hypoglycemia and hemoglobin A1c (last 6.7% 06/26/21), and glucose (last 144mg/dL). 3. Hypothyroidism: levothyroxine 100mcg PO daily. Please continue to monitor for S/S of hypo/hyperthyroidism and TSH (last 06/26/21). 4. GERD: pantoprazole 20mg PO daily. Please continue to monitor for S/S of GERD and diarrhea. 5. Iron deficiency (hemoglobin 9.3g/dL): Ferrex 150mg PO DAILYCM. Please continue to monitor for dark stools, constipation and hemoglobin. 6. Dry eyes: artificial tears 1-2gtt OU Q2H PRN dry eyes. Please continue to monitor for dry eyes. 7. Allergic rhinitis: loratadine 10mg PO daily. Please continue to monitor for allergies. 8. Calcium deficiency/vitamin D deficiency/overall nutrition: calcium/vitamin D 1T PO daily, cholecalciferol 50mcg PO daily, and multivitamin with minerals 1T PO BREAKFAST. Please continue to monitor calcium (last 9.5mg/dL) and vitamin D (last 06/26/21). 9. Insomnia: melatonin 10mg PO QHS PRN insomnia. Please continue to monitor for excessive drowsiness and PRN usage. Psychotropic Medications: 1. Depression: sertraline 150mg PO daily. Please see physician note regarding GDR. Unnecessary Medications: None Bowel Regimen: Miralax 17gm PO daily, senna/docusate 2T PO BID and bisacodyl 10mg PO daily PRN constipation. Please continue to monitor for constipation and PRN usage. Date of Note:: 06/30/21
[2021-06-30 21:16] LABS: Bedside Glucose 208 mg/dL (70-110)
[2021-07-01] MEDS: Levothyroxine 100 MCG Tablet PO (06:04)
[2021-07-01] MEDS: Polyethylene Glycol 3350 17 GM PACKET PO (06:04)
[2021-07-01] MEDS: Sertraline 100 MG Tablet 150 MG PO (06:04)
[2021-07-01] MEDS: Senna/Docusate Sodium 1 Tablet 2 TABLET PO (06:05)
[2021-07-01] MEDS: Pantoprazole Sodium 20 MG Tablet PO (06:05)
[2021-07-01] MEDS: Loratadine 10 MG Tablet PO (06:05)
[2021-07-01] MEDS: Menthol/Lanolin/Calamine/Znox 113 GM Tube 1 APPLIC TOPICAL ×2 (06:06→17:13)
[2021-07-01 06:40] LABS: Bedside Glucose 135 mg/dL (70-110)
[2021-07-01] MEDS: Iron Polysaccharide Complex 150 MG CAPSULE PO (08:46)
[2021-07-01] MEDS: Calcium Carb/Vitamin D 1 TABLET Tablet PO (08:46)
[2021-07-01] MEDS: Multivitamins,Ther W-Minerals Tablet 1 TABLET PO (08:46)
[2021-07-01] MEDS: Cholecalciferol (VIT D3) 25 MCG TABLET (1,000 UNITS) 50 MCG PO (08:50)
[2021-07-01 14:41] VITALS: BP 122/56; PULSE 93; RESP 16; TEMP 36.4; O2SAT 96
[2021-07-01 21:21] LABS: Bedside Glucose 313 mg/dL (70-110)
[2021-07-01 23:20] VITALS: PULSE 91; RESP 18; O2SAT 92
[2021-07-02] MEDS: Sertraline 100 MG Tablet 150 MG PO (06:05)
[2021-07-02] MEDS: Pantoprazole Sodium 20 MG Tablet PO (06:05)
[2021-07-02] MEDS: Levothyroxine 100 MCG Tablet PO (06:05)
[2021-07-02] MEDS: Loratadine 10 MG Tablet PO (06:06)
[2021-07-02] MEDS: Menthol/Lanolin/Calamine/Znox 113 GM Tube 1 APPLIC TOPICAL ×2 (06:09→16:37)
[2021-07-02 06:36] LABS: Bedside Glucose 142 mg/dL (70-110)
[2021-07-02] MEDS: Calcium Carb/Vitamin D 1 TABLET Tablet PO (08:13)
[2021-07-02] MEDS: Multivitamins,Ther W-Minerals Tablet 1 TABLET PO (08:13)
[2021-07-02] MEDS: Cholecalciferol (VIT D3) 25 MCG TABLET (1,000 UNITS) 50 MCG PO (08:13)
[2021-07-02] MEDS: Iron Polysaccharide Complex 150 MG CAPSULE PO (08:14)
[2021-07-02 16:33] VITALS: BP 135/78; PULSE 89; RESP 14; TEMP 37.2; O2SAT 94
[2021-07-02 21:51] LABS: Bedside Glucose 261 mg/dL (70-110)
[2021-07-02 23:38] VITALS: PULSE 80; RESP 18; O2SAT 94
[2021-07-03] MEDS: Loratadine 10 MG Tablet PO (05:50)
[2021-07-03] MEDS: Pantoprazole Sodium 20 MG Tablet PO (05:50)
[2021-07-03] MEDS: Sertraline 100 MG Tablet 150 MG PO (05:50)
[2021-07-03] MEDS: Levothyroxine 100 MCG Tablet PO (05:50)
[2021-07-03] MEDS: Menthol/Lanolin/Calamine/Znox 113 GM Tube 1 APPLIC TOPICAL ×2 (05:55→16:18)
[2021-07-03 06:41] LABS: Bedside Glucose 109 mg/dL (70-110)
[2021-07-03] MEDS: Cholecalciferol (VIT D3) 25 MCG TABLET (1,000 UNITS) 50 MCG PO (07:49)
[2021-07-03] MEDS: Calcium Carb/Vitamin D 1 TABLET Tablet PO (07:49)
[2021-07-03] MEDS: Multivitamins,Ther W-Minerals Tablet 1 TABLET PO (07:49)
[2021-07-03] MEDS: Iron Polysaccharide Complex 150 MG CAPSULE PO (07:49)
--- NOTE | 2021-07-03 15:00 | NURSING ---
Left message, for daughter, Shobha to call.
--- NOTE | 2021-07-03 15:45 | NURSING ---
Resident daughter, Shobha, updated on current COVID status on the unit. She does not want her mother tested for COVID unless there was contact with the positive staff member. Spoke with the positive staff member and they did not have contact with this resident.
[2021-07-03 15:57] VITALS: BP 136/63; PULSE 82; RESP 20; TEMP 36.6; O2SAT 98
--- NOTE | 2021-07-03 16:00 | NURSING ---
Resident declines to get the COViD Vaccine Booster at this time.
[2021-07-03 16:40] LABS: Bedside Glucose 221 mg/dL (70-110)
[2021-07-03 17:00] LABS: Bedside Glucose 264 mg/dL (70-110)
--- NOTE | 2021-07-03 17:40 | NURSING ---
R' C/O DRY COUGH, CONCERNED THAT IT MAY BE BRONCHITIS. DR VALDEZ ORDERED ZPAK.
--- NOTE | 2021-07-03 18:03 | NURSING ---
WENT TO ADMINISTER ZPAK. R' STATES I'M NOT COUGHING ANYMORE, SO I DON'T NEED IT. ASKED R' IF SHE WAS SURE SHE WANTED TO REFUSE SINCE SHE WAS C/O COUGHING THIS AM BUT INSISTED THAT I'DE RATHER NOT TAKE IT. I'M BETTER NOW. NOTIFIED DR VALDEZ. ZAFAR DC'D/.
[2021-07-03 21:46] LABS: Bedside Glucose 233 mg/dL (70-110)
[2021-07-03] MEDS: MELATONIN 10 MG TABLET PO (23:42)
[2021-07-04] MEDS: Menthol/Lanolin/Calamine/Znox 113 GM Tube 1 APPLIC TOPICAL ×2 (05:28→16:06)
[2021-07-04] MEDS: Pantoprazole Sodium 20 MG Tablet PO (05:29)
[2021-07-04] MEDS: Loratadine 10 MG Tablet PO (05:29)
[2021-07-04] MEDS: Levothyroxine 100 MCG Tablet PO (05:29)
[2021-07-04] MEDS: Sertraline 100 MG Tablet 150 MG PO (05:29)
[2021-07-04 06:05] LABS: Bedside Glucose 127 mg/dL (70-110)
[2021-07-04] MEDS: Calcium Carb/Vitamin D 1 TABLET Tablet PO (07:50)
[2021-07-04] MEDS: Multivitamins,Ther W-Minerals Tablet 1 TABLET PO (07:50)
[2021-07-04] MEDS: Cholecalciferol (VIT D3) 25 MCG TABLET (1,000 UNITS) 50 MCG PO (07:50)
[2021-07-04] MEDS: Iron Polysaccharide Complex 150 MG CAPSULE PO (07:50)
--- NOTE | 2021-07-04 10:21 | CASEMGMT ---
Social Work Insurance issued LCD 07/06, DC 07/07. Spoke with pt. Pt agreeable to DC. Pt will return to [place] [facility] at w/c level d/t [facility] and may need more care. Contacted Christina at [facility] to notify and inquire. [place] technically in [place], apt is w/c accessible and can receive more care if needed. Faxed updated clinicals. Pt agreeable to [facility], provided [facility] list with quality and resource data. Pt prefers [facility]. Referral made to [facility] PT/OT. Family to transport. Plan: DC to [facility] 07/07, [facility] PT/OT GABRIEL Dupree
[2021-07-04 14:57] VITALS: BP 140/80; PULSE 102; RESP 16; TEMP 36.6; O2SAT 98
--- NOTE | 2021-07-04 19:08 | DS.PCM_ITS ---
Providers Date of Admission: 06/28/21 Primary Care Physician: Dr. Daniel Nair MD Reason For Visit: R HIP PAIN Diagnosis Discharge Diagnosis (1) Debility: Status: Acute Code(s): R53.81 - Other malaise (2) Right hip pain: Status: Acute Code(s): M25.551 - Pain in right hip (3) Acute kidney injury: Status: Acute Code(s): N17.9 - Acute kidney failure, unspecified (4) Pelvis fracture: Status: Acute Code(s): S32.9XXA - Fracture of unspecified parts of lumbosacral spine and pelvis, initial encounter for closed fracture (5) Allergic rhinitis: Status: Acute Code(s): J30.9 - Allergic rhinitis, unspecified (6) Hypothyroidism: Status: Acute Code(s): E03.9 - Hypothyroidism, unspecified (7) Depression: Status: Acute Code(s): F32.A - Depression, unspecified (8) Hypertension: Status: Chronic Code(s): I10 - Essential (primary) hypertension (9) Diabetes mellitus: Status: Acute Code(s): E11.9 - Type 2 diabetes mellitus without complications (10) Gastroesophageal reflux disease: Status: Acute Code(s): K21.9 - Gastro-esophageal reflux disease without esophagitis (11) Vitamin D deficiency: Status: Acute Code(s): E55.9 - Vitamin D deficiency, unspecified (12) Hypokalemia: Status: Acute Code(s): E87.6 - Hypokalemia (13) Chronic kidney disease, stage 3b: Status: Acute Code(s): N18.32 - Chronic kidney disease, stage 3b Medications at Discharge Home Medications cetirizine 10 mg PO DAILY 10/07/13 levothyroxine 100 mcg PO DAILY 10/07/13 multivitamin with folic acid 1 tab PO DAILY 10/07/13 sertraline 150 mg PO DAILY 10/07/13 calcium carbonate-vitamin D3 1 tab PO DAILY 12/25/16 omeprazole 20 mg tablet,delayed release 20 mg PO DAILY PRN 09/03/19 cholecalciferol (vitamin D3) 2,000 unit PO DAILY 06/01/21 Restasis 1 drp EACH EYE Q12H 06/26/21 Lantus Solostar U-100 Insulin 15 units SUBCUT QHS 06/28/21 acetaminophen 1,000 mg PO Q8H PRN PRN #0 tab 06/28/21 sennosides-docusate sodium [Stool Softener-Stimulant Laxat] 2 tab PO BID PRN PRN #0 tab 06/28/21 melatonin 10 mg PO QHS PRN #0 tab 07/04/21 menthol-zinc oxide [Calmoseptine] 1 applic TOPICAL BID #0 g 07/04/21 polysaccharide iron complex [Ferrex 150] 150 mg PO DAILYCM 30 Days #30 cap 07/04/21 Hospital Course Operations None Procedures None Summary of Care Provided Minutes Spent on Discharge: 35 Hospital Course: 81 year old female with below past medical history hospitalized for fall, pelvic fracture, complicated by acute kidney injury, admitted to TCU with debility, here for rehabilitation, strengthening, prior to discharge to [facility]. Discharge to [facility] 07/07/2021, [facility] PT/OT. Physical Exam Const alert and oriented x3 General Appearance: cooperative HEENT normocephalic Eyes PERRL and EOMs intact bilaterally Neck supple, no JVD and no carotid bruits Resp normal respiratory effort, normal air movement and clear to auscultation bilaterally Cardio regular rate and regular rhythm GI normal to inspection, nondistended, normoactive bowel sounds, non-tender and non-distended Extremity normal capillary refill General Extremity: Negative for edema Skin no rashes or lesions noted General Skin Exam: no breakdown Psych affect normal Appearance: appropriate Weight / BMI Weight Weight: 73.499 kg Body Mass Index (BMI) 30.8 ABG / Lab / Microbiology Data Result Diagrams: 06/29/21 07:28 06/29/21 07:28 Laboratory: Laboratory Results - last 24 hr 07/03/21 21:30: POC Glucose 233 H 07/04/21 06:02: POC Glucose 127 H D/C Instructions Discharge Diet: No restrictions Discharge Activity: Return to Normal Activity, May Shower and Use Walker Weight Bearing Status: No weight bearing (Right lower extremity.) Call your doctor if you observe: Fever of 101 or Higher, Inability to urinate, Inability to have a bowel movement, Shortness of breath, Dizziness, Fainting spells, Swelling in the ankles, Chest pain and Uncontrolled pain Additional Instructions: Discharge to [facility] 07/07/2021, [facility] PT/OT. Please Follow Up With: Jefferson Wilkinson DO When: 1 week. Meaningful Use Info Meaningful Use Diagnoses (Choose all that apply): None applicable Discharge Plan Admission Admit Date/Time: 06/28/21 14:30 Primary Reason for Your Visit: Debility. Attending Provider: Jose Horner Chi Primary Care Provider: Daniel Nair Instructions Additional Instructions / Restrictions: Discharge to [facility] 07/07/2021, [facility] Care PT/OT. Discharge Orders/Prescriptions Prescriptions: New polysaccharide iron complex [Ferrex 150] 150 mg iron Capsule 150 mg PO DAILYCM 30 Days Qty: 30 RF: 0 menthol-zinc oxide [Calmoseptine] 0.44-20.6 % Ointment 1 applic topical BID Qty: 0 RF: 0 melatonin 10 mg Tablet, Sublingual 10 mg PO QHS PRN (Reason: Insomnia) Qty: 0 RF: 0 Continued omeprazole 20 mg tablet,delayed release (DR/EC) 20 mg PO DAILY PRN (Reason: gerd) RF: 0 cetirizine 10 MG tablet 10 mg PO DAILY RF: 0 sertraline 100 MG tablet 150 mg PO DAILY RF: 0 levothyroxine 25 MCG tablet 100 mcg PO DAILY RF: 0 multivitamin with folic acid 1 TABLET tablet 1 tab PO DAILY RF: 0 calcium carbonate-vitamin D3 1 EACH tablet,chewable 1 tab PO DAILY RF: 0 cholecalciferol (vitamin D3) 50 mcg (2,000 unit) tablet 2,000 unit PO DAILY RF: 0 Restasis 0.05 % Dropperette 1 drp EACH EYE Q12H RF: 0 sennosides-docusate sodium [Stool Softener-Stimulant Laxat] 8.6-50 mg Tablet 2 tab PO BID PRN PRN (Reason: Constipation) Qty: 0 RF: 0 acetaminophen 500 mg Tablet 1,000 mg PO Q8H PRN PRN (Reason: Pain Score 1-10/Temp > 100.7 F) Qty: 0 RF: 0 Lantus Solostar U-100 Insulin 100 unit/mL (3 mL) insulin pen 15 units subcut QHS RF: 0 Discontinued heparin (porcine) 5,000 unit/mL solution 5,000 unit subcut Q8 RF: 0 Referrals / Follow Up: Daniel Nair MD [Primary Care Provider] - Disposition Disposition (needs filled in before D/C Order can be placed): Assisted Living
--- NOTE | 2021-07-04 19:26 | PCM.TXEXTCAR ---
Diet 06/28/21 15:02 Diet: Consistent Carb - Calorie Controlled Food consistency:: Regular Liquid Consistency:: Regular/Thin Is pt able to select menu?: Yes How many daily calories?: 1800 calorie Routine Orders/Code Status Code Status: DNRCC-A (No intubation.) Wound(s) Rt shoulder: Wound Type: Abrasion Therapies Weight Bearing: Non weight bearing (Right lower extremity.) Extremity Affected:: Right Lower Physical Therapy: Eval and Treat Occupational Therapy: Eval and Treat Problem/Diagnosis (1) Debility: Status: Acute (2) Right hip pain: Status: Acute (3) Acute kidney injury: Status: Acute (4) Pelvis fracture: Status: Acute (5) Allergic rhinitis: Status: Acute (6) Hypothyroidism: Status: Acute (7) Depression: Status: Acute (8) Hypertension: Status: Chronic (9) Diabetes mellitus: Status: Acute (10) Gastroesophageal reflux disease: Status: Acute (11) Vitamin D deficiency: Status: Acute (12) Hypokalemia: Status: Acute (13) Chronic kidney disease, stage 3b: Status: Acute Allergies/Procedures Done in Hospital Allergies lenalidomide [From Revlimid] Allergy (Verified 06/25/21 13:46) Rash lisinopril Allergy (Verified 06/25/21 13:46) Unknown Procedures: None Type of Care/Length of Stay Estimated LOS: More Than 30 Days Type of Care Needed: Senior Living/Assisted Living Rehab Potential: Good Prognosis: Fair Additional Orders/Day of Discharge Day of Discharge: 07/07/21 Dietary and Speech Recommendations Dietitian Recommendations/Changes: Continue Carbohydrate consistent 1800 calorie diet. Follow Up Care Please Follow Up With: Jefferson Wilkinson DO When: 2 weeks Please Follow Up With: Daniel Nair MD (PCP) When: 2 weeks Discharge Plan Admission Admit Date/Time: 06/28/21 14:30 Primary Reason for Your Visit: Debility. Attending Provider: Jose Horner Chi Primary Care Provider: Daniel Nair Instructions Additional Instructions / Restrictions: Discharge to [facility] 07/07/2021, [facility] PT/OT. Discharge Orders/Prescriptions Prescriptions: New polysaccharide iron complex [Ferrex 150] 150 mg iron Capsule 150 mg PO DAILYCM 30 Days Qty: 30 RF: 0 menthol-zinc oxide [Calmoseptine] 0.44-20.6 % Ointment 1 applic topical BID Qty: 0 RF: 0 melatonin 10 mg Tablet, Sublingual 10 mg PO QHS PRN (Reason: Insomnia) Qty: 0 RF: 0 Continued omeprazole 20 mg tablet,delayed release (DR/EC) 20 mg PO DAILY PRN (Reason: gerd) RF: 0 cetirizine 10 MG tablet 10 mg PO DAILY RF: 0 sertraline 100 MG tablet 150 mg PO DAILY RF: 0 levothyroxine 25 MCG tablet 100 mcg PO DAILY RF: 0 multivitamin with folic acid 1 TABLET tablet 1 tab PO DAILY RF: 0 calcium carbonate-vitamin D3 1 EACH tablet,chewable 1 tab PO DAILY RF: 0 cholecalciferol (vitamin D3) 50 mcg (2,000 unit) tablet 2,000 unit PO DAILY RF: 0 Restasis 0.05 % Dropperette 1 drp EACH EYE Q12H RF: 0 sennosides-docusate sodium [Stool Softener-Stimulant Laxat] 8.6-50 mg Tablet 2 tab PO BID PRN PRN (Reason: Constipation) Qty: 0 RF: 0 acetaminophen 500 mg Tablet 1,000 mg PO Q8H PRN PRN (Reason: Pain Score 1-10/Temp > 100.7 F) Qty: 0 RF: 0 Lantus Solostar U-100 Insulin 100 unit/mL (3 mL) insulin pen 15 units subcut QHS RF: 0 Discontinued heparin (porcine) 5,000 unit/mL solution 5,000 unit subcut Q8 RF: 0 Referrals / Follow Up: Daniel Nair MD [Primary Care Provider] - Disposition Disposition (needs filled in before D/C Order can be placed): Assisted Living
[2021-07-04 20:20] VITALS: PULSE 91; RESP 14; O2SAT 97
[2021-07-04 21:31] LABS: Bedside Glucose 255 mg/dL (70-110)
[2021-07-05] MEDS: Sertraline 100 MG Tablet 150 MG PO (05:52)
[2021-07-05] MEDS: Menthol/Lanolin/Calamine/Znox 113 GM Tube 1 APPLIC TOPICAL ×2 (05:52→16:14)
[2021-07-05] MEDS: Pantoprazole Sodium 20 MG Tablet PO (05:53)
[2021-07-05] MEDS: Levothyroxine 100 MCG Tablet PO (05:53)
[2021-07-05] MEDS: Loratadine 10 MG Tablet PO (05:53)
[2021-07-05 06:16] LABS: Bedside Glucose 116 mg/dL (70-110)
[2021-07-05] MEDS: Multivitamins,Ther W-Minerals Tablet 1 TABLET PO (07:52)
[2021-07-05] MEDS: Iron Polysaccharide Complex 150 MG CAPSULE PO (07:52)
[2021-07-05] MEDS: Calcium Carb/Vitamin D 1 TABLET Tablet PO (07:52)
[2021-07-05] MEDS: Cholecalciferol (VIT D3) 25 MCG TABLET (1,000 UNITS) 50 MCG PO (07:52)
--- NOTE | 2021-07-05 08:50 | CASEMGMT ---
Social Work BIMS(15) and PHQ-9(6) completed at this time. Symptoms on PHQ-9 pt relates more to her medical condition than symptoms of depression. No referrals warranted at this time in regard to this. NORA Woods
--- NOTE | 2021-07-05 10:17 | CASEMGMT ---
Social Work IDT met with patient and dtr for care plan meeting. Discussed patient's progress in therapy and nursing. Pt progressing well. Insurance issued DC 07/07. Pt will return to [facility] with [facility] PT/OT. Dtr to transport. No other issues noted. Kim Campuzano, MARGIN CLERK HAND TOUCH UP PAINTER
[2021-07-05 15:14] VITALS: BP 133/76; PULSE 91; RESP 16; TEMP 36.6; O2SAT 96
[2021-07-05 15:15] VITALS: PULSE 91; RESP 16; O2SAT 96
[2021-07-05 21:30] LABS: Bedside Glucose 243 mg/dL (70-110)
[2021-07-06 06:06] LABS: Absolute Lymphocyte Count 0.97 X10^3/uL (0.83-4.51); Absolute Neutrophil Count 1.6 X10^3/uL (2.0-7.7); Basophil# 0.02 X10^3/uL; Basophil% 0.6 % (0-1); Eosinophil# 0.12 X10^3/uL; Eosinophils% 3.7 % (0-5); Hematocrit 26.8 % (37-47); Hemoglobin 8.8 g/dL (12.0-15.0); Lymphocyte # 0.97 X10^3/ul (0.83-4.51); Lymphocyte % 30.1 % (19-41); Mean Corp Hgb Conc 32.8 g/dL (32-36); Mean Corpuscular Hgb 34.2 pg (27.0-32.0); Mean Corpuscular Volume 104.3 fL (81-99); Mean Platelet Vol. 10.9 fl (6.2-12.0); Monocyte% 12.4 % (0-10); NRBC Flagged by Analyzer 0.6 % (0-5); Neutrophil # 1.64 X10^3/uL (2.7-7.7); POSITIVE COUNT YES; Platelet Count 68 K/mm3 (150-450); RBC Distribution Width SD 57.1 fl (35.1-43.9); Red Blood Count 2.57 M/mm3 (4.2-5.4); White Blood Count 3.2 K/mm3 (4.4-11.0)
[2021-07-06] MEDS: Pantoprazole Sodium 20 MG Tablet PO (06:20)
[2021-07-06] MEDS: Loratadine 10 MG Tablet PO (06:20)
[2021-07-06] MEDS: Levothyroxine 100 MCG Tablet PO (06:20)
[2021-07-06] MEDS: Sertraline 100 MG Tablet 150 MG PO (06:20)
[2021-07-06 06:26] LABS: Bedside Glucose 145 mg/dL (70-110)
[2021-07-06] MEDS: Menthol/Lanolin/Calamine/Znox 113 GM Tube 1 APPLIC TOPICAL ×2 (06:33→17:32)
[2021-07-06 06:34] LABS: Anion Gap 4 (5-15); BUN 38 mg/dL (7-18); BUN/Creat Ratio 24.1 RATIO (10-20); Calcium,Total 9.1 mg/dL (8.5-10.1); Chloride 106 mmol/L (98-107); Creatinine, Serum 1.58 mg/dL (0.55-1.02); EST Glomerular Filtration Rate 33 mL/min (>60); Est Glom Filt Rate - Afr Amer 40 mL/min (>60); Estimated Creatinine Clearance 20.36 ml/min; Glucose 166 mg/dL (74-106); Potassium 4.1 mmol/L (3.5-5.1); Sodium Level 139 mmol/L (136-145)
[2021-07-06] MEDS: Calcium Carb/Vitamin D 1 TABLET Tablet PO (09:02)
[2021-07-06] MEDS: Multivitamins,Ther W-Minerals Tablet 1 TABLET PO (09:02)
[2021-07-06] MEDS: Iron Polysaccharide Complex 150 MG CAPSULE PO (09:02)
[2021-07-06] MEDS: Cholecalciferol (VIT D3) 25 MCG TABLET (1,000 UNITS) 50 MCG PO (09:02)
[2021-07-06 11:05] LABS: Bedside Glucose 219 mg/dL (70-110)
[2021-07-06 13:07] VITALS: PULSE 89; RESP 16; O2SAT 96
[2021-07-06 15:28] VITALS: BP 133/66; PULSE 89; RESP 16; TEMP 37.1; O2SAT 96
[2021-07-06 22:40] LABS: Bedside Glucose 227 mg/dL (70-110)
[2021-07-07 06:20] LABS: Bedside Glucose 124 mg/dL (70-110)
[2021-07-07] MEDS: Pantoprazole Sodium 20 MG Tablet PO (06:37)
[2021-07-07] MEDS: Loratadine 10 MG Tablet PO (06:37)
[2021-07-07] MEDS: Menthol/Lanolin/Calamine/Znox 113 GM Tube 1 APPLIC TOPICAL (06:37)
[2021-07-07] MEDS: Sertraline 100 MG Tablet 150 MG PO (06:38)
[2021-07-07] MEDS: Levothyroxine 100 MCG Tablet PO (06:38)
[2021-07-07] MEDS: Cholecalciferol (VIT D3) 25 MCG TABLET (1,000 UNITS) 50 MCG PO (08:20)
[2021-07-07] MEDS: Calcium Carb/Vitamin D 1 TABLET Tablet PO (08:20)
[2021-07-07] MEDS: Iron Polysaccharide Complex 150 MG CAPSULE PO (08:20)
[2021-07-07] MEDS: Multivitamins,Ther W-Minerals Tablet 1 TABLET PO (08:20)
[2021-07-07 15:32] VITALS: BP 145/82; PULSE 97; RESP 14; TEMP 37.1; O2SAT 97
--- NOTE | 2021-07-11 07:59 | MDS.RN ---
Information for the mds was obtained from review of the clinical record, interview of resident, staff, and direct observation of resident's care.
== END 2021-07-07 15:30 | disposition home or self-care (01) | DRG 560 ==
PROVIDERS: Admitting Provider Family Medicine Geriatric Medicine; PCP Family Medicine; Visit Provider Family Medicine Geriatric Medicine
DX: S32.511D Fracture of superior rim of right pubis, subsequent encounter for fracture with routine healing (principal); D69.3 Immune thrombocytopenic purpura; C90.00 Multiple myeloma not having achieved remission; W19.XXXD Unspecified fall, subsequent encounter; I12.9 Hypertensive chronic kidney disease with stage 1 through stage 4 chronic kidney disease, or unspecified chronic kidney disease; E11.22 Type 2 diabetes mellitus with diabetic chronic kidney disease; N18.32 Chronic kidney disease, stage 3b; K21.9 Gastro-esophageal reflux disease without esophagitis; E78.5 Hyperlipidemia, unspecified; G47.33 Obstructive sleep apnea (adult) (pediatric); E03.9 Hypothyroidism, unspecified; F32.A Depression, unspecified; E55.9 Vitamin D deficiency, unspecified; Z79.899 Other long term (current) drug therapy; Z79.4 Long term (current) use of insulin; Z79.01 Long term (current) use of anticoagulants; Z79.890 Hormone replacement therapy
CPT/HCPCS: 36415; 80048; 82962; 85025; 97110; 97162; 97166; 97530; 97533; 97535; A4216

== ENCOUNTER → 2021-07-13 09:42 | Outpatient (CLI) | payer MEDICARE, SELFPAY ==
[2021-07-13 12:41] LABS: Hemoglobin A1c 6.5 % (3.8-5.6)
[2021-07-13 13:00] LABS: Anion Gap 12 (5-15); BUN 39 mg/dL (7-18); BUN/Creat Ratio 20.3 RATIO (10-20); Chloride 104 mmol/L (98-107); Cholesterol 174 mg/dL (200); Creatinine, Serum 1.92 mg/dL (0.55-1.02); EST Glomerular Filtration Rate 27 mL/min (>60); Est Glom Filt Rate - Afr Amer 32 mL/min (>60); Free T3 2.4 pg/mL (2.18-3.98); Glucose 166 mg/dL (74-106); High Density Lipoprotein 32 mg/dL; Sodium Level 140 mmol/L (136-145); Thyroid Stim Hormone (TSH) 2.49 uIU/mL (0.358-3.74); Triglycerides 187 mg/dL; Very Low Density Lipoprotein 37 mg/dL (5-40)
== END ==
PROVIDERS: PCP Family Medicine; Referring Provider Family Medicine; Visit Provider Family Medicine
DX: E11.9 Type 2 diabetes mellitus without complications (principal); E03.9 Hypothyroidism, unspecified
CPT/HCPCS: 36415; 80048; 80061; 83036; 84439; 84443; 84481

== ENCOUNTER 2021-07-28 09:35 | Emergency (ER) | payer MEDICARE, SELFPAY ==
[2021-07-28 09:36] VITALS: BP 140/68; PULSE 95; RESP 15; TEMP 37.1; O2SAT 96; BMI 30.5
--- NOTE | 2021-07-28 09:55 | EKG12_ITS ---
Test Reason : CP Blood Pressure : / mmHG Vent. Rate : 096 BPM Atrial Rate : 096 BPM P-R Int : 142 ms QRS Dur : 136 ms QT Int : 412 ms P-R-T Axes : 039 060 030 degrees QTc Int : 520 ms Normal sinus rhythm Right bundle branch block Abnormal ECG Confirmed by CRISTIAN BROOKE, MAHIN ([id number]), deputy editor in chief SOHA JENNINGS ([id number]) on 08/01/2021 8:53:01 AM Referred By: GEORGE Confirmed By:MAHIN FOSTER MD
--- NOTE | 2021-07-28 09:55 | ED.VIS.CHEST ---
HPI History of Present Illness Chief Complaint: Chest Pain Informant: patient and EMS Narrative Narrative: 81-year-old female presents the emergency room via EMS with a chief complaint of chest pain. Patient states she has had pain in the left anterior aspect of her chest for 2 weeks. It is worse with movement and with touch. She states that there are times when she goes to sit up and she cannot because it hurts. She states there are times she goes to roll over and it hurts and she can't go back to bed. She states that she saw a nurse practitioner who felt that it was musculoskeletal in nature. She states that her son who is a nurse was over yesterday for Thanksgiving and saw that she was having a lot of pain recommended that she get a chest x-ray. There is been no direct trauma. No fevers. No rashes. [facility] Medical History (Updated 07/28/21 @ 11:[address] Carlos Briceño, ) Acute renal failure Basal cell carcinoma (BCC) of skin of face Breast cancer Cataracts, bilateral Chronic idiopathic thrombocytopenia Dehydration Depression Diabetes mellitus type 2 in obese Diastolic dysfunction Gastroenteritis Gastroesophageal reflux disease Hyperlipidemia Hypertension Hypokalemia Hypophosphatemia Hypothyroidism (acquired) Leukopenia Metabolic acidosis Multiple myeloma Obstructive sleep apnea Osteoporosis Home Medications cetirizine 10 mg PO DAILY 10/07/13 [History Last Taken Unknown] levothyroxine 100 mcg PO DAILY 10/07/13 [History Last Taken 01/30/19 06:15] multivitamin with folic acid 1 tab PO DAILY 10/07/13 [History Last Taken Unknown] sertraline 150 mg PO DAILY 10/07/13 [History Last Taken Unknown] calcium carbonate-vitamin D3 1 tab PO DAILY 12/25/16 [History Last Taken Unknown] omeprazole 20 mg tablet,delayed release 20 mg PO DAILY PRN 09/03/19 [History Last Taken Unknown] cholecalciferol (vitamin D3) 2,000 unit PO DAILY 06/01/21 [History Last Taken Unknown] Restasis 1 drp EACH EYE Q12H 06/26/21 [History Last Taken Unknown] Lantus Solostar U-100 Insulin 15 units SUBCUT QHS 06/28/21 [History Last Taken Unknown] acetaminophen 1,000 mg PO Q8H PRN PRN #0 tab 06/28/21 [Rx Last Taken Unknown] sennosides-docusate sodium [Stool Softener-Stimulant Laxat] 2 tab PO BID PRN PRN #0 tab 06/28/21 [Rx Last Taken Unknown] melatonin 10 mg PO QHS PRN #0 tab 07/04/21 [Rx Last Taken Unknown] menthol-zinc oxide [Calmoseptine] 1 applic TOPICAL BID #0 g 07/04/21 [Rx Last Taken Unknown] polysaccharide iron complex [Ferrex 150] 150 mg PO DAILYCM 30 Days #30 cap 07/04/21 [Rx Last Taken Unknown] oxycodone 5 mg PO TID PRN 3 Days #9 cap 07/28/21 [Rx Last Taken Unknown] prednisone 40 mg PO DAILY #10 tab 07/28/21 [Rx Last Taken Unknown] Allergy/AdvReac Type Severity Reaction Status Date / Time lenalidomide [From Revlimid] Allergy Rash Verified 06/25/21 13:46 lisinopril Allergy Unknown Verified 06/25/21 13:46 Family History Mother CVA (cerebral vascular accident) Surgical History History of thyroidectomy Hx of cholecystectomy Hx of tonsillectomy Social History household members: none housing: assisted living facility Smoking Status: Never smoker second hand exposure: No alcohol intake: never substance use type: does not use caffeine: Yes what type of physical activity do you participate in: none frequency: does not exercise seatbelt use: always ROS ROS ED Constitutional Constitutional ED: Denies chills or weight loss Eyes Eyes: Denies change in vision or diplopia ENT ENT ED: Denies ear pain, rhinorrhea or sore throat Cardiovascular Cardiovascular: Reports chest pain; Denies orthopnea, palpitations or racing heartbeat Respiratory/Chest Respiratory/Chest: Denies cough, dyspnea or orthopnea Gastrointestinal Gastrointestinal: Denies abdominal pain, diarrhea, nausea or vomiting Genitourinary Genitourinary ED: Denies dysuria, hematuria or urinary frequency Musculoskeletal Musculoskeletal: Denies arthralgias or myalgias Integumentary Denies abscess or rash Neurologic Neurologic: Denies headache(s) or weakness Psychiatric Psychiatric: Denies anxiety, depression, suicidal ideation or suicidal thoughts Endocrine Endocrinology: Denies polydipsia, polyphagia or polyuria Allergic/Immunologic Allergic/Immunologic ED: Denies mouth swelling, tongue swelling or urticaria EXAM Physical Exam Const Vital Signs: 07/28/21 09:36 07/28/21 10:04 Temperature 98.7 F Temperature Source Oral Pulse Rate 95 Respiratory Rate 15 Respiratory Effort Normal Non-Labored Respiratory Pattern Normal Blood Pressure 140/68 H Blood Pressure Mean 92 Pulse Ox 96 Oxygen Delivery Method Room Air Positive well nourished and well developed General Appearance ED: well developed HEENT Reports normocephalic, head/scalp atraumatic and moist mucous membranes normocephalic and atraumatic Eyes PERRL and EOMs intact bilaterally Neck no lymphadenopathy, supple and no JVD Chest Wall Chest Narrative: The left upper chest wall particularly ribs 4 and 5 are tender to palpation. I do not appreciate a rash. Resp normal respiratory effort and clear to auscultation bilaterally Cardio regular rate, regular rhythm and no murmurs GI normal to inspection, nondistended, normoactive bowel sounds and non-tender Palpation: soft Back/Spine no CVA tenderness and normal ROM Extremity normal to inspection General Extremety ED: Negative for edema General Extremity: Negative for edema Neuro oriented x3 and CN's II-XII intact bilaterally Sensorium / Orientation: alert Motor Exam: strength 5/5 throughout Psych mental status grossly normal Mood & Affect: Negative for depressed or tearful Skin no rashes or lesions noted and no wounds MDM MDM MDM Narrative Medical decision making narrative: My interpretation of the chest x-ray is no acute process. Clinically this is costochondritis. Her anterior chest wall is very tender to palpation in I can reproduce her pain simply by having her touch the area or move. She received a dose of oxycodone here. I can write for a few of those to have at home. We talked about taking anti-inflammatories versus steroids that she would like to try some steroids. Patient to follow-up with primary care if not improving Radiography Diagnostic Testing: Clinical Impression(s) from Imaging Studies Chest X-Ray 07/28/21 10:10 IMPRESSION: 1. No airspace consolidation or pleural effusion. 2. Potential 1.5 cm nodule in the right lung base versus confluence of shadows/rib artifact. Not evident on the prior x-ray, however. Recommend additional follow-up with either chest PA and lateral or chest CT, depending on patient''s risk factors. Electronically Signed: Gunnar Kline MD ([place]) at 10:38 EST , Service support , EKG Initial EKG: Attestation: I personally reviewed and interpreted this EKG as follows: Comments: Normal sinus rhythm with a ventricular rate of 96 bpm. Noted right bundle branch block. Discharge Plan Triage Chief Complaint: Chest Pain ED Provider: Carlos Briceño Dx/Rx/DC Orders Clinical Impression: Acute costochondritis Instructions: Costochondritis Prescriptions: New oxycodone 5 mg capsule 5 mg PO TID PRN (Reason: pain) 3 Days Qty: 9 RF: 0 prednisone 20 mg tablet 40 mg PO DAILY Qty: 10 RF: 0 No Action omeprazole 20 mg tablet,delayed release (DR/EC) 20 mg PO DAILY PRN (Reason: gerd) RF: 0 cetirizine 10 MG tablet 10 mg PO DAILY RF: 0 sertraline 100 MG tablet 150 mg PO DAILY RF: 0 levothyroxine 25 MCG tablet 100 mcg PO DAILY RF: 0 multivitamin with folic acid 1 TABLET tablet 1 tab PO DAILY RF: 0 calcium carbonate-vitamin D3 1 EACH tablet,chewable 1 tab PO DAILY RF: 0 cholecalciferol (vitamin D3) 50 mcg (2,000 unit) tablet 2,000 unit PO DAILY RF: 0 Restasis 0.05 % Dropperette 1 drp EACH EYE Q12H RF: 0 sennosides-docusate sodium [Stool Softener-Stimulant Laxat] 8.6-50 mg Tablet 2 tab PO BID PRN PRN (Reason: Constipation) Qty: 0 RF: 0 acetaminophen 500 mg Tablet 1,000 mg PO Q8H PRN PRN (Reason: Pain Score 1-10/Temp > 100.7 F) Qty: 0 RF: 0 Lantus Solostar U-100 Insulin 100 unit/mL (3 mL) insulin pen 15 units subcut QHS RF: 0 polysaccharide iron complex [Ferrex 150] 150 mg iron Capsule 150 mg PO DAILYCM 30 Days Qty: 30 RF: 0 menthol-zinc oxide [Calmoseptine] 0.44-20.6 % Ointment 1 applic topical BID Qty: 0 RF: 0 melatonin 10 mg Tablet, Sublingual 10 mg PO QHS PRN (Reason: Insomnia) Qty: 0 RF: 0 Primary Care Provider: Daniel Nair Referrals: Daniel Nair MD [Primary Care Provider] - 1 Week if not improving Disposition Disposition: Home, Self Care
[2021-07-28] MEDS: oxyCODONE 5 MG Tablet PO (10:03)
--- NOTE | 2021-07-28 10:10 | RAD_ITS ---
STUDY: X-RAY CHEST REASON FOR EXAM: Female, 81 years old. chest pain TECHNIQUE: AP COMPARISON: 03/15/2020 FINDINGS: Right chest port. Surgical clips overlie the left axilla. In the right lung base, there is a focal nodular density measuring 1.4 x 1.5 cm overlying the anterior right fifth rib. There is no demonstrated pleural abnormality. Normal size heart. Normal mediastinum and gutierrez. Normal visualized pulmonary arteries. There is atherosclerotic calcification of the aortic arch with tortuosity. Old left clavicle fracture. Stable chronic deformity of the right shoulder and proximal humerus. Old left rib fractures. There is no demonstrated abnormality of the visualized soft tissue structures of the upper abdomen. RAD/Chest 1 View (Portable) IMPRESSION: 1. No airspace consolidation or pleural effusion. 2. Potential 1.5 cm nodule in the right lung base versus confluence of shadows/rib artifact. Not evident on the prior x-ray, however. Recommend additional follow-up with either chest PA and lateral or chest CT, depending on patient''s risk factors. Electronically Signed: Gunnar Kline MD ([place]) at 10:38 EST , Service support ,
[2021-07-28 12:11] VITALS: BP 145/53; PULSE 76; RESP 16; O2SAT 97
--- NOTE | 2021-07-28 12:13 | ED.RN ---
report called to [place] nurse watson by this rn.
== END 2021-07-28 12:13 | disposition home or self-care (01) ==
PROVIDERS: Emergency Provider Emergency Medicine; PCP Family Medicine
DX: M94.0 Chondrocostal junction syndrome [Tietze] (principal); I10 Essential (primary) hypertension; E11.9 Type 2 diabetes mellitus without complications; E78.5 Hyperlipidemia, unspecified; E03.9 Hypothyroidism, unspecified; E66.9 Obesity, unspecified; K21.9 Gastro-esophageal reflux disease without esophagitis; M81.0 Age-related osteoporosis without current pathological fracture; F32.A Depression, unspecified; Z68.30 Body mass index [BMI] 30.0-30.9, adult; Z79.4 Long term (current) use of insulin; Z79.52 Long term (current) use of systemic steroids; Z79.899 Other long term (current) drug therapy
CPT/HCPCS: 71045; 93005; 99285